=== PATIENT | female | born 1965 | race Caucasian/White ===

== ENCOUNTER → 2017-08-08 | Outpatient (CLI) | payer BC, SELFPAY | PROVIDERS: PCP Family Medicine; Visit Provider Family Medicine | DX: Z87.891 Personal history of nicotine dependence (principal); Z12.2 Encounter for screening for malignant neoplasm of respiratory organs | CPT/HCPCS: 77067; G0202 ==

== ENCOUNTER → 2018-05-07 09:59 | Outpatient (POV) | payer BC, SELFPAY | PROVIDERS: Family Provider Family Medicine; PCP Family Medicine; Visit Provider Specialist | DX: R20.8 Other disturbances of skin sensation (principal) | CPT/HCPCS: 95886; 95908 ==

== ENCOUNTER → 2018-05-07 10:51 | Outpatient (CLI) | payer BC, SELFPAY | PROVIDERS: Visit Provider Nurse Practitioner | DX: G47.30 Sleep apnea, unspecified (principal); R40.0 Somnolence | CPT/HCPCS: 95806 ==

== ENCOUNTER → 2018-08-30 12:46 | Outpatient (CLI) | payer BC, SELFPAY ==
--- NOTE | 2018-08-30 12:50 | MM_ITS ---
MM Dig screening mamm BI w/CAD CAD Screening COMPARISON: Digital mammograms with CAD 08/08/2017 and 07/27/2016 INDICATION: There is a history of breast cancer in patient's maternal aunt. TECHNIQUE: Standard CC and MLO images were obtained. R2 CAD reviewed. FINDINGS: Prominent diffuse fibroglandular densities are seen throughout both breasts and the findings are bilateral and symmetrical. There is no new or suspicious lesion in either breast and there are no suspicious microcalcifications. Again noted is the low lying node left axilla. IMPRESSION: Fibrofatty parenchyma with no suspicious lesion seen BI-RADS Category: 1 Negative RECOMMENDED FOLLOW-UP: 1YR - 1 YEAR FOLLOW-UP (A letter has been sent to the patient regarding results of the study.)
== END ==
PROVIDERS: PCP Family Medicine; Visit Provider Obstetrics & Gynecology Gynecology
DX: Z12.31 Encounter for screening mammogram for malignant neoplasm of breast (principal)
CPT/HCPCS: 77067

== ENCOUNTER → 2019-01-22 07:53 | Outpatient (CLI) | payer BC, SELFPAY ==
--- NOTE | 2019-01-22 07:57 | CA_ITS ---
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 Left atrium is normal size, left ventricle is normal size, there is no concentric left ventricular hypertrophy, visually estimated ejection fraction 55% with no regional wall motion abnormality. 2. The right atrium and right ventricle are normal size and contractility. 3. The aortic valve is minimally thickened and calcified consistent with aortic sclerosis. There is no aortic stenosis. 4. The mitral and tricuspid valvular grossly normal. 5. The pulmonic valve is poorly visualized. 6. No significant pericardial effusion noted. DOPPLER INTERROGATION: Doppler interrogation of the aortic, mitral and tricuspid valvular presence of mild mitral and tricuspid regurgitation, tricuspid regurgitation jet velocity is inadequate for calculation of the right ventricular systolic pressure, diastolic parameters are within normal range. CONCLUSION: 1. Normal left ventricular size, preserved left ventricular systolic function, visually estimated ejection fraction 55% with no regional wall motion abnormality. Diastolic parameters are within normal range. 2. Minimally thickened and calcified aortic valve consistent with aortic sclerosis, there is no aortic stenosis aortic insufficiency. 3. Mild mitral and tricuspid regurgitation 4. No significant pericardial effusion noted.
--- NOTE | 2019-01-22 07:57 | NM_ITS ---
SPECT MYOCARDIAL PERFUSION SCAN, REST AND STRESS: EXERCISE STRESS: [facility] REVIEW QGS EF AND WALL MOTION EVALUATION: QPS - PERFUSION EVALUATION: HISTORY: SOB, Fatigue, Family history PROCEDURE: Rest imaging performed after administration of10.14 millicuries Tc MIBI. Dose administered at8:10 a.m., with imaging thereafter. Stress imaging was then performed [id number] minutes 30 seconds of exercise stress. The patient achieved a heart [id number] with projected heart rate of144 . Resting BP121/76 with stress 140/70. At maximum exercise stress,29.7 millicuries Tc MIBI administered at10:05 a.m. with [id number] minutes thereafter. FINDINGS: Perfusion Evaluation: The single slice spect images as well as the [facility] bull's-eye data summary were reviewed. Wall Motion and Ejection Fraction Evaluation: Gated SPECT review and analysis used to evaluate these features. There is a 66 % left ventricular ejection fraction. There seems to be good wall motion Uniform myocardial activity at both stress and rest IMPRESSION: No scintigraphic evidence of exercise-induced myocardial ischemia with normal ejection fraction and normal wall motion
--- NOTE | 2019-01-22 08:19 | HMH.ITSHM ---
Current Home Medications as stated by this patient Brittany Bocanegra or insurance account representative. []MINIVELLE PATCH
== END ==
PROVIDERS: Visit Provider Urology
DX: R00.2 Palpitations (principal); R06.02 Shortness of breath; R07.9 Chest pain, unspecified; Z86.79 Personal history of other diseases of the circulatory system; Z98.890 Other specified postprocedural states
CPT/HCPCS: 78452; 93017; 93306; A9502

== ENCOUNTER → 2021-02-02 12:55 | Outpatient (CLI) | payer BC, SELFPAY | PROVIDERS: Visit Provider Surgery | DX: Z01.812 Encounter for preprocedural laboratory examination (principal); Z11.52 Encounter for screening for COVID-19; Z12.11 Encounter for screening for malignant neoplasm of colon | CPT/HCPCS: U0003 ==

== ENCOUNTER 2021-02-04 06:34 | Day surgery (SDC) | payer BC, SELFPAY ==
[2021-01-28 11:40] VITALS: BMI 31.0
[2021-02-04 06:58] VITALS: BP 139/70; PULSE 92; RESP 18; TEMP 36.7; O2SAT 97
--- NOTE | 2021-02-04 07:02 | HMH.ANESCL ---
[facility] Anesthesia Checklist - Patient Identification Patient Identification: Arm Band - Structural Data Admitted From: Home Planned Operative Procedure/s: Colonoscopy Consent for Planned Operative Procedure(s) Verified: Yes - NPO Status Verified Time NPO: 00:00 - Additional verifications Anesthesia Reactions: Yes (nausea) - Airway Assessment C-Spine Mobility Assessed: Yes TMJ Mobility Assessed: Yes Dentition: Good Dentition - Neurological Assessment Level of Consciousness: Awake Hx Seizures: No Numbness or tingling in extremities: Yes - Anesthesia Plan Anesthesia Risk discussed: Yes Anesthesia Plan: Verified ASA Class: II Anesthesia Type: MAC [facility] History I have reviewed the patient's past medical history: Yes Medical History: Reports:: Anxiety, Heart Murmur, Palpitations, Supraventricular Tachycardia Denies:: Cancer, Diabetes Mellitus Type 1, Diabetes Mellitus Type 2, Internal Pacemaker, Lung Disease, MRSA, Seizures *Have you ever received a pneumonia vaccine?: No *Have you received a flu vaccine this season?: Yes Anesthesia experience/problems:: None Other Surgeries: Yes: No Previous Surgery, Cardiac Surgery, Colonoscopy, Hysterectomy-Total. No: Pacemaker Amputation: No Fractures: No - *Social History Last grade of school completed: High school graduate Smoking Status: Never smoker Alcohol Intake: never Substance Use Type: denies use *Occupational Status:: employed *Travel in the last 8 weeks: None - Psychiatric History Pschychiatric History:: Reports:: Anxiety Family Hx:: Coronary Artery Disease, Heart Attack, Cancer, Kidney Disease
[2021-02-04 07:30] VITALS: O2SAT 97
[2021-02-04 08:04] VITALS: BP 81/46; PULSE 91; RESP 18; TEMP 36.1; O2SAT 92
--- NOTE | 2021-02-04 08:06 | HMH.SCOPE ---
- Procedure: Date: 02/04/21 Patient Date of :: 1965 Procedure Performed:: Colonoscopy Indications:: History of colon polyps Hemorrhoids with intermittent bleeding Performing Provider:: Raza Olivo MD Referring Provider:: . Sedation:: Monitored anesthesia care Procedure:: After informed consent was obtained the patient was taken to the endoscopy suite. Sedation ensued after the patient was transferred to the left lateral decubitus position. Pulse, blood pressure, and oxygen saturation were monitored throughout the procedure. Digital rectal exam revealed no significant abnormality. The colonoscope was placed in position. The entire colon was evaluated. The colonoscope was carefully removed and the patient was transferred to recovery in stable condition. Please see findings and specimens below for detail. Findings:: Bowel preparation relatively fair Fairly significant tortuosity of the sigmoid colon Moderate colonic spasticity Hemorrhoidal cushions with no thrombosis or active bleeding Specimens:: None Recommendations:: Repeat colonoscopy in 3-5 years secondary to history of significant polyps Complications:: No immediate Estimated blood obtained (mL): 0
[2021-02-04 08:14] VITALS: BP 86/58; PULSE 86; RESP 16; TEMP 36.1; O2SAT 94
[2021-02-04 08:24] VITALS: BP 104/54; PULSE 86; RESP 16; TEMP 36.1; O2SAT 95
[2021-02-04 08:34] VITALS: BP 118/77; PULSE 77; RESP 16; TEMP 36.7; O2SAT 99
== END 2021-02-04 08:35 | disposition home or self-care (01) ==
LOC: OUTP 06:35
PROVIDERS: PCP Family Medicine; Visit Provider Surgery
PROC: 0DJD8ZZ Inspection of Lower Intestinal Tract, Via Natural or Artificial Opening Endoscopic (ICD-10-PCS; CPT 45378; principal; 2021-02-04 07:30)
DX: Z12.11 Encounter for screening for malignant neoplasm of colon (principal); K56.2 Volvulus; K64.0 First degree hemorrhoids; K58.9 Irritable bowel syndrome, unspecified; F41.9 Anxiety disorder, unspecified; R01.1 Cardiac murmur, unspecified; R00.2 Palpitations; I47.1 Supraventricular tachycardia; Z79.890 Hormone replacement therapy; Z82.3 Family history of stroke; Z80.9 Family history of malignant neoplasm, unspecified; Z84.1 Family history of disorders of kidney and ureter
CPT/HCPCS: 45378; J2704

== ENCOUNTER → 2021-06-25 08:56 | Outpatient (CLI) | payer BC, SELFPAY ==
--- NOTE | 2021-06-25 09:01 | US_ITS ---
PROCEDURE: US ABDOMEN LIMITED CLINICAL INDICATION: ABNORMAL LIVER ENZYMES COMPARISON: No exams were available for comparison FINDINGS: PANCREAS: Unremarkable. No obvious mass or abnormal fluid collection. No ductal dilatation LIVER: No focal liver lesions demonstrated. Homogeneous echogenicity. No intrahepatic biliary ductal dilatation evident. There is appropriate direction of blood flow within a non dilated portal vein RIGHT KIDNEY: There is an 8 cm simple cyst along the lower pole of the right kidney GALLBLADDER: No gallstones, gallbladder wall thickening, pericholecystic fluid, or biliary dilatation. IMPRESSION: 8 cm right renal cyst otherwise negative right upper quadrant ultrasound. Dictated by: Arnel Thompson MD 06/25/2021 16:37 Arnel Thompson MD in [place] 06/25/2021 16:37
== END ==
PROVIDERS: PCP Family Medicine; Visit Provider Family Medicine
DX: R74.8 Abnormal levels of other serum enzymes (principal)
CPT/HCPCS: 76705

== ENCOUNTER → 2021-06-28 14:29 | Outpatient (CLI) | payer BC, SELFPAY | PROVIDERS: PCP Family Medicine; Visit Provider Family Medicine | DX: G47.30 Sleep apnea, unspecified (principal); R06.83 Snoring | CPT/HCPCS: G0399 ==

== ENCOUNTER → 2021-07-12 09:58 | Outpatient (CLI) | payer BC, SELFPAY ==
[2021-07-12 11:30] LABS: Thyroid Stimulating Hormone 0.53 uIU/mL (0.465-4.68)
== END ==
PROVIDERS: Visit Provider Nurse Practitioner Family
DX: R53.83 Other fatigue (principal)
CPT/HCPCS: 36415; 84443

== ENCOUNTER → 2021-08-03 16:48 | Outpatient (CLI) | payer BC, SELFPAY | PROVIDERS: PCP Family Medicine; Visit Provider Nurse Practitioner | DX: Z20.822 Contact with and (suspected) exposure to COVID-19 (principal) | CPT/HCPCS: C9803; U0003; U0005 ==

== ENCOUNTER → 2021-09-30 12:48 | Outpatient (CLI) | payer BC, SELFPAY ==
--- NOTE | 2021-09-30 12:48 | MM_ITS ---
PROCEDURE INFORMATION: Exam: MG Bilateral Screening 3D Mammography Exam date and time: 09/30/2021 12:48 PM Age: 55 years old Clinical indication: Encounter for screening mammogram for malignant neoplasm of breast TECHNIQUE: Imaging protocol: Bilateral Screening tomosynthesis and 2D mammography including computer-aided detection (CAD) when performed. COMPARISON: 1. MG SCBI MM Dig screening mamm BI w/CAD 08/30/2018 1:13 PM 2. MG DMSB DIG MAMM-SCREEN KASHIF W/CAD 08/08/2017 11:14 AM FINDINGS: MAMMOGRAPHY: Breast composition: The breast tissue is extremely dense, limiting the sensitivity of mammography. Mass: None. Architectural distortion: None. Calcifications: No suspicious calcifications. Asymmetric density: None. Skin thickening: None. Axillary adenopathy: None. IMPRESSION: No mammographic evidence of malignancy. Annual screening is recommended unless otherwise clinically indicated. ASSESSMENT: BI-RADS Category 1: Negative
== END ==
PROVIDERS: PCP Family Medicine; Visit Provider Obstetrics & Gynecology
DX: Z12.31 Encounter for screening mammogram for malignant neoplasm of breast (principal)
CPT/HCPCS: 77063; 77067

== ENCOUNTER → 2021-12-04 10:39 | Outpatient (CLI) | payer BC, SELFPAY ==
--- NOTE | 2021-12-04 10:48 | XR_ITS ---
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 Views: 3 or more views. COMPARISON: No relevant prior studies available. FINDINGS: Bones/joints: Mild osteoarthritic changes. No evidence of an acute fracture or dislocation. Soft tissues: Grossly unremarkable. IMPRESSION: No acute process.
== END ==
PROVIDERS: PCP Physician Assistant; Referring Provider Physician Assistant; Visit Provider Physician Assistant
DX: S69.92XA Unspecified injury of left wrist, hand and finger(s), initial encounter (principal)
CPT/HCPCS: 73130

== ENCOUNTER → 2022-01-19 11:45 | Outpatient (CLI) | payer BC, SELFPAY | PROVIDERS: PCP Family Medicine; Visit Provider Urology | DX: Z01.812 Encounter for preprocedural laboratory examination (principal); Z20.822 Contact with and (suspected) exposure to COVID-19; R31.9 Hematuria, unspecified | CPT/HCPCS: C9803; U0003; U0005 ==

== ENCOUNTER 2022-01-21 08:00 | Day surgery (SDC) | payer BC, SELFPAY ==
[2022-01-21 08:11] VITALS: BP 182/111; PULSE 91; RESP 18; TEMP 36.4; O2SAT 96; BMI 32.5
[2022-01-21 09:32] VITALS: BP 170/88; PULSE 78; RESP 18; TEMP 36.1; O2SAT 96
--- NOTE | 2022-01-21 10:35 | P.OP_ITS ---
Date of procedure: 01/21/22 Pre-op Diagnosis:: Gross hematuria Post-op Diagnosis:: Gross hematuria Procedure performed:: Cystoscopy Surgeon:: Ilya Boykin MD Anesthesia: local Estimated blood loss (mL): 0 Clinical Note:: 56-year-old white female with recurring episodes of the gross hematuria presents for cystoscopic evaluation. CT scan is shown only a 8 cm simple cyst. He states he noticed some dark blood in the toilet bowl this morning. Operative findings:: The bladder was within normal limits. The bladder neck appeared to have some erythematous inflammatory polyps present which appeared a bit papillary in nature. Operative note:: Patient taken to the cystoscopy suite after informed consent was obtained. On the stretcher she was placed into the frog-leg position. She was prepped and draped in a standard surgical fashion and 2% lidocaine placed into the urethra. After few minutes the flexible cystoscope introduced into the urethral meatus. The scope passed into the bladder without difficulty and the bladder examined in a systematic fashion. There was no evidence of papillary tumors, mucosal abnor malities, stones, diverticula or trabeculation. The ureteral orifices in their normal anatomic position with clear efflux of urine. At the bladder neck there appeared to be some polypoid fronds which appeared erythematous. The scope was placed back into the bladder and the scope retroflexed. These bladder neck problems. Papillary in 1 area. The scope then used to examine the rest of the urethra which was within normal limits. Scope removed patient tolerated procedure well. We discussed the bladder neck polyps and cystoscopy with resection of the polyps was felt to be diagnostic as well as therapeutic to rule out any transitional cell carcinoma. We will set this up under general anesthetic in the near future. Condition: stable Disposition: same day Specimens:: None Complications:: None
== END 2022-01-21 09:50 | disposition home or self-care (01) ==
LOC: OUTP 08:02
PROVIDERS: PCP Family Medicine; Visit Provider Urology
PROC: (CPT 52000; principal; 2022-01-21 09:00)
DX: R31.0 Gross hematuria (principal); D41.4 Neoplasm of uncertain behavior of bladder
CPT/HCPCS: 52000

== ENCOUNTER → 2022-02-05 08:31 | Outpatient (CLI) | payer BC, SELFPAY | PROVIDERS: PCP Family Medicine; Visit Provider Urology | DX: Z01.812 Encounter for preprocedural laboratory examination (principal); Z20.822 Contact with and (suspected) exposure to COVID-19; R31.0 Gross hematuria | CPT/HCPCS: C9803; U0003; U0005 ==

== ENCOUNTER 2022-02-07 09:33 | Day surgery (SDC) | payer BC, OTHER, SELFPAY ==
[2022-02-02 11:09] VITALS: BMI 32.0
[2022-02-07] VITALS (11 sets, daily range): BP systolic 119–153; BP diastolic 62–98; PULSE 68–89; RESP 12–20; TEMP 36.2–43; O2SAT 93–98
--- NOTE | 2022-02-07 14:38 | P.PN_ITS ---
[facility] Anesthesia Checklist - Patient Identification Patient Identification: Arm Band - Structural Data Admitted From: Home Planned Operative Procedure/s: Cystoscopy with resection of bladder neck polyps Consent for Planned Operative Procedure(s) Verified: Yes Verified Documents: Surgical Consent, History and Physical - NPO Status Verified Time NPO: 00:00 - Additional verifications Anesthesia Reactions: Yes (nausea) Hx Blood Transfusions: No Blood Transfusion Reaction: No - Airway Assessment C-Spine Mobility Assessed: Yes (mp2) TMJ Mobility Assessed: Yes Dentition: Good Dentition - Neurological Assessment Level of Consciousness: Awake, Alert - Anesthesia Plan Anesthesia Risk discussed: Yes Anesthesia Plan: Verified ASA Class: II Anesthesia Type: General [facility] History I have reviewed the patient's past medical history: Yes Medical History: Reports:: Anxiety, Cancer (bladder), Heart Murmur, Nephritis, Palpitations, Supraventricular Tachycardia Denies:: Diabetes Mellitus Type 1, Diabetes Mellitus Type 2, Internal Pacemaker, Lung Disease, MRSA, Seizures *Have you ever received a pneumonia vaccine?: No *Have you received a flu vaccine this season?: No Other Medical History: Denies: Blood Transfusion Reaction Anesthesia experience/problems:: nac Other Surgeries: Yes: Cardiac Surgery, Colonoscopy, Hysterectomy-Total. No: Pacemaker Amputation: No Fractures: No - *Social History Last grade of school completed: High school graduate Smoking Status: Never smoker Alcohol Intake: never Substance Use Type: denies use *Occupational Status:: employed Housing: house Household Members: spouse *Travel in the last 8 weeks: None - Psychiatric History Pschychiatric History:: Reports:: Anxiety Family Hx:: Coronary Artery Disease, Heart Attack, Cancer, Kidney Disease, Anemia, Stroke
--- NOTE | 2022-02-07 14:38 | HMH.ANESI ---
[facility] Anesthesia Record Part I Intake, IV Amount: 900 Estimated blood loss (mL): 0 Urine output (mL): 0 Blood Pressure: 136/98 SaO2: 93 Pulse Rate: 87 Respiratory Rate: 16 Temperature: 98.3 F Patient is:: Drowsy, Stable Stable to PACU at:: 14:35
--- NOTE | 2022-02-07 15:29 | SUR.PHASEI ---
1503 called and provided detailed report to Yovanny Russell RN 1505 transported via stretcher to post op. vital signs stable. denies pain. upon arrival to post op, detailed report given to Martha Shankar RN. left pt in stable condition with Martha Shankar RN at bedside.
--- NOTE | 2022-02-07 15:51 | HMH.ANESII ---
[facility] Anesthesia Record Part II Discharge Time: 15:05 Destination: Surgical Day Care (OP Surgery) PACU nurse assessment reviewed?: Yes Patient Condition:: Good Anesthesia Complications:: None Swallowing reflex intact?: Yes Cyanosis?: No Blood Pressure: 126/84 Pulse Rate: 68 Temperature: 97.5 F Mental Status: Alert & Oriented Pain level:: 0 Nausea and/or vomitting:: None Intake, IV Amount: 0
--- NOTE | 2022-02-07 16:29 | HMH.OPNOTE ---
Date of procedure: 02/07/22 Pre-op Diagnosis:: Gross hematuria secondary to some bladder neck lesions Post-op Diagnosis:: Same Procedure performed:: Cystoscopy with biopsy of the bladder neck lesion and fulguration of bladder neck Surgeon:: Ilya Boykni MD SPECIAL[employer] FINISHING UTILITY PERSON:: Jerald Nuñez Anesthesia: LMA Estimated blood loss (mL): 2 Clinical Note:: 56-year-old white female with recent gross hematuria noted to have some inflammation and frondular elements at the bladder neck with some papillary change. She presents for urologic management today. She denies any interval gross hematuria. Operative findings:: Bladder neck lesions as described above. Bladder otherwise normal. Operative note:: Patient taken to the operating room after informed consent was obtained. Placed on the operating table in the supine position and general anesthesia administered. Preoperative antibiotics and sequential compression devices placed. She was then placed into the dorsal lithotomy position and prepped and draped in the standard surgical fashion. The 20 Cayetano passed into the urethra and into the bladder. The bladder was examined in a systematic fashion. There is no evidence of mucosal abnormalities, stones, trabeculation or diverticula. The ureteral orifices in the normotonic position. At the bladder neck there were some urethral polyps and some erythematous areas circumferentially. The rigid graspers were placed onto the cystoscope and 2 biopsies were taken from the urethra and 1 at the 12 o'clock position and the other at the 6 o'clock position. Some bleeding was noted from these areas and the urethra was fulgurated in a circumferential fashion. Hemostasis was achieved and a 16 Bengali Watson catheter passed into the bladder and 10 cc placed into the balloon. Patient tolerated procedure well no complications. We will plan on seeing her back in 3 days for catheter removal. Discussion of biopsies at that time as well. Condition: stable Disposition: PACU Specimens:: Bladder neck biopsies Complications:: None
== END 2022-02-07 15:40 | disposition home or self-care (01) ==
LOC: OR 09:35
PROVIDERS: PCP Family Medicine; Visit Provider Urology
PROC: 0TJB8ZZ Inspection of Bladder, Via Natural or Artificial Opening Endoscopic (ICD-10-PCS; CPT 52000; principal; 2022-02-07 11:00)
DX: R31.0 Gross hematuria (principal); N32.9 Bladder disorder, unspecified; Z85.51 Personal history of malignant neoplasm of bladder; N05.9 Unspecified nephritic syndrome with unspecified morphologic changes; F41.1 Generalized anxiety disorder; R01.1 Cardiac murmur, unspecified; Z79.899 Other long term (current) drug therapy
CPT/HCPCS: 52214; 96374; J2405

== ENCOUNTER → 2022-03-22 16:56 | Outpatient (CLI) | payer BC, SELFPAY | PROVIDERS: Visit Provider Urology | DX: R31.9 Hematuria, unspecified (principal) | CPT/HCPCS: 87086 ==

== ENCOUNTER → 2022-05-02 07:59 | Outpatient (CLI) | payer BC, SELFPAY ==
--- NOTE | 2022-05-02 08:00 | CA_ITS ---
APPROVED REPORT EXAM: Comprehensive 2D, Doppler, and color-flow Echocardiogram Saloonkeeper: Lizzie Shetty RVT Ht: 5 ft 9 in Wt: 218lbs BSA: 2.14 BP: 118/64 mmHg Indications: soa, palps,cp,hx ablation for svt 2D Dimensions LVOT 2.37 cm (M/F) 1.5-2.5 LA Volume 23.80 mL LA Volume Index 11.12 mL/m2 (M/F) 16-34 M-Mode Dimensions RVDd 3.19 cm (0.9-2.6) LA Diam 3.47 cm (1.9-4.0) LVDd 4.52 cm (3.5-5.7) Ao Diam 3.14 cm (2.0-3.7) LVDs 2.74 cm (3.5-5.7) IVSd 1.29 cm (0.6-1.1) PWd 0.76 cm (0.6-1.1) EF (Teich) 70.00% FS 39.40% EDV (Teich) 93.40 mL TAPSE 2.74 (<1.7) ESV (Teich) 28.00 mL LV Diastology E Decel Time 173.00 (160-240 msec) E/A Ratio 1.0 MED E' 4.60 (< 7 cm/sec) E'/MED E' Ratio 11.52 (>14) LAT E' 6.80 (<10 cm/sec) E/LAT E' Ratio 7.79 (>14) Aortic Valve AO Peak GR. 3.20 mmHg Mitral Valve MV E Max Paul. 53.00 (40-130 cm/s) MV A Velocity 55.00 (40-130 cm/s) E/A Ratio 0.97 MV Decel. Time 173.00 (160-240 ms) MV PHT 51.00 ms Pulmonary Valve PV Peak Velocity 55.00 (50-150 cm/s) Tricuspid Valve TR P. Velocity 157.00 cm/s RAP Estimate 10.00 mmHg RVSP 19.90 mmHg Left Ventricle Atrium is mildly enlarged, left ventricle is normal size, estimated ejection fraction 55% with no regional wall motion abnormality, diastolic parameters are inconclusive in the study. Right Ventricle Right atrium and right ventricle are mildly enlarged with normal contractility. Aortic Valve Aortic valve is grossly normal, there is no aortic stenosis or aortic insufficiency. Mitral Valve Mitral valve grossly normal, there is trace mitral regurgitation. Tricuspid Valve Tricuspid valve grossly normal, there is trace tricuspid regurgitation, tricuspid regurgitation jet velocity is inadequate for calculation of the right ventricular systolic pressure. Pulmonic Valve Pulmonic valve is poorly visualized. Great Vessels Aortic root is normal size. Inferior vena cava is poorly visualized. Pericardium No significant pericardial effusion noted. Conclusion 1. Mild biatrial enlargement, normal left ventricular size, estimated ejection fraction 55% with no regional wall motion abnormality, diastolic parameters are inconclusive. 2. Mildly enlarged right ventricle with normal contractility. 3. Trace mitral and tricuspid regurgitation. 4. No significant pericardial effusion noted. 5. Inferior vena cava is poorly visualized. Electronically signed by : Delvis Blakely MD 05/02/2022 15:33:40
== END ==
PROVIDERS: PCP Family Medicine; Visit Provider Nurse Practitioner Family
DX: R06.02 Shortness of breath (principal); I35.8 Other nonrheumatic aortic valve disorders
CPT/HCPCS: 93306

== ENCOUNTER → 2022-05-10 13:12 | Outpatient (POV) | payer BC, SELFPAY | PROVIDERS: Visit Provider Dermatology | DX: Z00.00 Encounter for general adult medical examination without abnormal findings (principal) ==

== ENCOUNTER 2022-06-02 08:00 | Emergency (ER) | payer BC, SELFPAY ==
[2022-06-02 08:10] VITALS: BP 153/112; PULSE 102; RESP 20; TEMP 37.2; O2SAT 98; BMI 32.5
--- NOTE | 2022-06-02 08:25 | EXP.UTC ---
Discharge Plan Disposition Patient Disposition: Home, Self-Care Condition: Good Prescriptions Prescriptions: New benzonatate [benzonatate] 100 mg capsule 100 mg PO TIDP PRN (Reason: Cough) Qty: 30 0RF ondansetron 4 mg Tablet,Disintegrating 4 mg PO Q8H PRN (Reason: Nausea) Qty: 20 0RF No Action escitalopram oxalate 10 mg tablet 20 mg PO DAILY metformin 500 mg tablet extended release 24 hr 500 mg PO DAILY aripiprazole 2 MG tablet 2 mg PO DAILY estradiol [Minivelle] 0.1 mg/24 hr patch semiweekly 1 patch transdermal DIRECTED Rx Instructions: 1 patch transdermally twice weekly; pt. can not use the generic of this medication it doesn't work for her she has already tried the generic. Referrals Follow up/Referrals: Dario Kline MD [Primary Care Provider] - See instructions Activity Restrictions/Add. Instructions Additional Instructions/Restrictions: Drink plenty of fluids. Take tylenol or ibuprofen for pain or fever. Take the medications as directed. Follow up with your regular doctor. GO TO THE ER FOR ANY WORSENING SYMPTOMS Quarantine until you know the results of your covid-19 test. Notify your school or workplace of your results and follow their instructions regarding return to work/school. Clinical Impressions Clinical Impression: Viral syndrome, Close exposure to COVID-19 virus Instructions Patient Instructions: Coronavirus Disease 2019, Preventing the Spread of Coronavirus Discharge Instructions Discharge ED Provider: Jeff Alanis [facility] HPI General Stated complaint: covid exposure, cough,drainage,headache Mode of Arrival: Ambulatory Source of Information: Patient Limitations: No Limitations Time Seen by Provider: 06/02/22 08:26 Description of Symptoms (Recalled from Triage Doc. by RN): PATIENT C/O COUGH, RUNNY NOSE, FEVER, AND BODY ACHES THAT STARTED MONDAY. RECENTLY EXPOSED TO COVID HEENT Symptoms (Recalled from RN notes): Yes Resp Symptoms (Recalled from RN notes): Yes Skin Symptoms (Recalled from RN notes): No MS Symptoms (Recalled from RN notes): No Functional Status (Recalled from RN notes): WNL History of Present Illness Provider Complaint: She states that she has felt bad since yesterday. She has body aches, low grade fever, chills, body aches and malaise. Her tested positive for covid-19 2 days ago. Related Data Home Medications Medication Instructions Recorded Confirmed escitalopram oxalate 10 mg tablet 20 mg PO DAILY Depression 03/25/20 06/02/22 aripiprazole 2 mg tablet 2 mg PO DAILY Depression 02/07/22 06/02/22 metformin 500 mg tablet,extended 500 mg PO DAILY . 04/26/22 06/02/22 release 24 hr estradiol 0.1 mg/24 hr semiweekly 1 patch transdermal DIRECTED . 06/02/22 06/02/22 transdermal patch (Minivelle) Previous Rx's Medication Instructions Recorded benzonatate 100 mg capsule 100 mg PO TIDP PRN Cough #30 caps 06/02/22 ondansetron 4 mg disintegrating 4 mg PO Q8H PRN Nausea #20 tabs 06/02/22 tablet Allergies Allergy/AdvReac Type Severity Reaction Status Date / Time No Known Allergies Allergy Verified 04/26/22 11:49 Worker's Comp Is this a Worker's Comp case?: No PFSH PFSH Medical History Anxiety Chest pain H/O supraventricular tachycardia Liver disease Palpitations SOB (shortness of breath) Surgical History History of hysterectomy Status post ablation operation for arrhythmia Social History Smoking Status: Never smoker alcohol intake: never substance use type: denies use current occupational status: employed Travel in the last 8 weeks: None household members: spouse housing: house 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
[2022-06-02 08:42] VITALS: BP 150/96; PULSE 102; RESP 20; TEMP 37.2; O2SAT 98
== END 2022-06-02 09:03 | disposition home or self-care (01) ==
PROVIDERS: Emergency Provider Nurse Practitioner Family; PCP Family Medicine
DX: U07.1 COVID-19 (principal)
CPT/HCPCS: 99212; C9803; G0463; U0003; U0005

== ENCOUNTER 2022-06-29 18:25 | Emergency (ER) | payer BC, SELFPAY ==
--- NOTE | 2022-06-29 19:47 | EXP.UTC ---
Discharge Plan Disposition Patient Disposition: Home, Self-Care Condition: Good Prescriptions Prescriptions: No Action escitalopram oxalate 10 mg tablet 20 mg PO DAILY metformin 500 mg tablet extended release 24 hr 500 mg PO DAILY estradiol [Minivelle] 0.1 mg/24 hr patch semiweekly 1 patch transdermal .Twice a week 90 Days Qty: 24 3RF Rx Instructions: BRAND NAME ONLY. pt. can not use the generic of this medication it doesn't work for her she has already tried the generic. DAW1 aripiprazole 2 MG tablet 2 mg PO DAILY benzonatate [benzonatate] 100 mg capsule 100 mg PO TIDP PRN (Reason: Cough) Qty: 30 0RF ondansetron 4 mg Tablet,Disintegrating 4 mg PO Q8H PRN (Reason: Nausea) Qty: 20 0RF Referrals Follow up/Referrals: Dario Kline MD [Primary Care Provider] - See instructions Activity Restrictions/Add. Instructions Additional Instructions/Restrictions: Drink plenty of fluids. Take tylenol for pain or fever. Follow up with your regular doctor. GO TO THE ER FOR ANY WORSENING SYMPTOMS Clinical Impressions Clinical Impression: Viral disease exposure Instructions Patient Instructions: DI for Viral Syndrome Discharge ED Provider: Jeff Alanis [facility] [place] General Stated complaint: RSV Time Seen by Provider: 06/29/22 19:47 History of Present Illness Provider Complaint: She is here to be tested for rsv. she denies symptoms. She has a new grand baby that she is going to see and she does want to pack rsv in on it. Related Data Home Medications Medication Instructions Recorded Confirmed escitalopram oxalate 10 mg tablet 20 mg PO DAILY Depression 03/25/20 06/02/22 aripiprazole 2 mg tablet 2 mg PO DAILY Depression 02/07/22 06/02/22 metformin 500 mg tablet,extended 500 mg PO DAILY . 04/26/22 06/02/22 release 24 hr Previous Rx's Medication Instructions Recorded benzonatate 100 mg capsule 100 mg PO TIDP PRN Cough #30 caps 06/02/22 ondansetron 4 mg disintegrating 4 mg PO Q8H PRN Nausea #20 tabs 06/02/22 tablet Minivelle 0.1 mg/24 hr transdermal 1 patch transdermal .Twice a week 06/03/22 patch (estradiol) . 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 documented Constitutional Constitutional: Denies chills and Denies fever(s) Eyes Eyes: Denies eye discharge ENT Ears, Nose, Mouth, and Throat: Denies dizziness, Denies otalgia and Denies sore throat Cardiovascular Cardiovascular: Denies chest pain Respiratory Respiratory: Denies shortness of breath, Denies chest congestion, Denies cough, Denies stridor and Denies wheezing Gastrointestinal Gastrointestingal: Denies nausea or vomiting Musculoskeletal Musculoskeletal: Reports system reviewed and no additional complaints, except as documented and Denies arthralgias Integumentary/Breasts Skin/Breast: Denies rash Neurologic Neurologic: Denies dizziness and Denies paresthesias Allergic/Immunologic Allergic/Immunologic: Denies wheezing Physical Exam General General appearance: alert and in no apparent distress Head Head exam: atraumatic, normocephalic and normal inspection
[2022-06-29 19:52] VITALS: BP 149/81; PULSE 103; RESP 18; TEMP 36.7; O2SAT 98; BMI 32.5
[2022-06-29 19:52] LABS: Adenovirus,PCR Not Detected (NotDetected); Bordetella Pertussis Not Detected (NotDetected); Chlamydophila Pneumoniae, PCR Not Detected (NotDetected); Coronavirus 19, PCR Not Detected (NotDetected); Coronavirus 229E Not Detected (NotDetected); Coronavirus NL63 Not Detected (NotDetected); Coronavirus OC43 Not Detected (NotDetected); Coronovirus HKU1,PCR Not Detected (NotDetected); Human Metapneumovirus Not Detected (NotDetected); Influenza A, PCR Not Detected (NotDetected); Influenza AH1, 2009 Not Detected (NotDetected); Influenza AH1, PCR Not Detected (NotDetected); Influenza AH3,PCR Not Detected (NotDetected); Influenza B, PCR Not Detected (NotDetected); Mycoplasma Pneumoniae, PCR Not Detected (NotDetected); Parainfluenza 1, PCR Not Detected (NotDetected); Parainfluenza 2, PCR Not Detected (NotDetected); Parainfluenza 3, PCR Not Detected (NotDetected); Parainfluenza 4, PCR Not Detected (NotDetected); Respiratory Syncytial Virus Not Detected (NotDetected); Rhinovirus/Enterovirus Not Detected (NotDetected)
[2022-06-29 19:58] VITALS: BP 149/81; PULSE 103; RESP 18; TEMP 36.7
== END 2022-06-29 20:00 | disposition home or self-care (01) ==
PROVIDERS: Emergency Provider Nurse Practitioner Family; PCP Family Medicine
DX: Z20.828 Contact with and (suspected) exposure to other viral communicable diseases (principal)
CPT/HCPCS: 87581; 87632; 87798; 99212; C9803; G0463; U0003; U0005

== ENCOUNTER → 2023-04-19 10:21 | Outpatient (CLI) | payer BC, SELFPAY ==
--- NOTE | 2023-04-19 10:24 | MM_ITS ---
PROCEDURE INFORMATION: Exam: MG Bilateral Screening 3D Mammography Exam date and time: 04/19/2023 10:13 AM Age: 57 years old Clinical indication: Screening mammogram TECHNIQUE: Imaging protocol: Bilateral Screening tomosynthesis and 2D mammography including computer-aided detection (CAD) when performed. COMPARISON: 1. MG MM DIG SCREENING MAMM BI W/CAD 09/30/2021 12:57 PM 2. MG SIMONE SCRN MAMMO W/CAD BILAT 09/02/2019 11:12 AM 3. MG SCBI MM Dig screening mamm BI w/CAD 08/30/2018 1:13 PM 4. MG DMSB DIG MAMM-SCREEN KASHIF W/CAD 08/08/2017 11:14 AM FINDINGS: MAMMOGRAPHY: Breast composition: The breast is heterogeneously dense, which may obscure small masses. Mass: None. Architectural distortion: No new or suspicious architectural distortion. Calcifications: No new or suspicious calcifications are present Asymmetric density: No new or suspicious asymmetric density is present Skin thickening: None. Axillary adenopathy: None. IMPRESSION: No mammographic evidence of malignancy. Recommend annual screening mammography unless otherwise clinically indicated. ASSESSMENT: BI-RADS category 1: Negative
== END ==
PROVIDERS: PCP Family Medicine; Visit Provider Physician Assistant
DX: Z12.31 Encounter for screening mammogram for malignant neoplasm of breast (principal)
CPT/HCPCS: 77063; 77067

== ENCOUNTER 2023-06-14 07:06 | Outpatient (CLI) | payer BC, SELFPAY ==
[2023-06-14] VITALS (7 sets, daily range): BP systolic 109–128; BP diastolic 56–86; PULSE 66–82; RESP 16–18; TEMP 36.2–36.6; O2SAT 95–100; BMI 30.4
--- NOTE | 2023-06-14 07:07 | CT_ITS ---
APPROVED REPORT Launch Leader: CLINICAL INDICATION Chest Pain TECHNIQUE Image Acquisition: A 128 slice MDCT scanner (MaxVisiona View) was used for data acquisition. A noncontrast coronary calcium scan was performed. A CT attenuation threshold of 130 Hounsfield units (HU) was used for the detection of calcium in contiguous voxels of 1 sq mm in area to be counted as individual lesions. Bolus tracking in the ascending aorta with a threshold of 180 HU was performed. Immediately afterwards, ECG synchronized cardiac CT was then performed from the cardiac base to apex using retrospective gating with ECG tube current modulation. A total of 85 mL of Isovue 370 mg/mL contrast medium was administered at 5 mL/sec followed by a saline flush using a biphasic injection protocol. A tube voltage of 120 KVp was used. The patient received the following medications prior to the cardiac CT. 100 mg of oral metoprolol 15 mg of intravenous metoprolol 0.8 mg of sublingual nitroglycerin The average heart rate at the time of acquisition was 61 bpm and regular. Image Reconstruction Transaxial images were reconstructed at 0.67 mm slide thickness. Data was reviewed interactively on an advanced workstation capable of 2 and 3-dimensional displays in all conventional reconstruction formats, including multiplanar reformations, maximum intensity projections, curved multiplanar reformations, and volume rendered reconstructions. When applicable, selected routine images describing the relevant coronary anatomy and pathology were saved and sent to PACS. Complications None Technical Quality Overall image quality was good. Coronary artery opacification was adequate. Total DLP (Dose-Length Product) is 1452.7 mGy-cm. The reported value represents the total of one or more individual components during the CT acquisition of this date and at this time, and as such, the same value may appear in more than one CT report depending on the interpreting/reporting physicians. COMPARISON None FINDINGS CT Coronary Calcium Scoring LMA (Left Main Artery) = 0 LAD (Left Anterior Descending) = 0 LCX (Left Coronary Circumflex) = 0 RCA (Right Coronary Artery) = 0 Total Calcium Score = 0 using the AJ-130 method. The interpretation of the calcium heart score is based on the following continuum*: 0 = no calcified plaque detected (risk of coronary artery disease is very low ??? less than 5%) 1-10 = calcium detected in extremely minimal levels (risk of coronary diseases is still low ??? less than 10%) 11-100 = mild levels of plaque detected with certainty (mild or minimal narrowing of heart arteries is likely) 101-400 = definite,at least moderate levels of plaque detected (relatively high risk of a heart attack within 3-5 years) >401-999 = extensive levels of plaque detected (high risk of heart attack, high levels of vascular disease are present, high likelihood of at least one significant coronary narrowing) *The calcium heart score quantifies the burden of coronary calcification/plaque in the coronary arteries. The calcium heart score is not able to evaluate the presence or burden of non-calcified (i.e. soft) plaque. There is no identifiable calcification in the aortic valve, mitral annulus or mitral valve, pericardium, or myocardium. Coronary CT Angiography Coronaries have normal origin and proximal course. The coronary arterial system is right dominant. Note: Stenosis is reported as maximum percentage diameter stenosis. Quantitative Stenosis Grading: Left Main (LM): The left main originates normally from the left sinus of Valsalva. The LM bifurcates into the left anterior descending artery and left circumflex artery. The LM is patent with no evidence of atherosclerosis.
[2023-06-14 08:31] LABS: Chloride 101 mmol/L (98-107)
[2023-06-14 08:32] LABS: Potassium 4.2 mmoL/L (3.5-5.1); Sodium 137 mmol/L (136-145)
[2023-06-14 08:35] LABS: Anion Gap 11.2 mEq/L (5-15); Blood Urea Nitrogen 19 mg/dl (7-17); Calcium 8.9 mg/dl (8.4-10.2); Carbon Dioxide 29 mmol/L (22.0-30.0); Creatinine Clearance Estimated 134 mL/min (50-200); Estimated Glomerular Filt Rate 87 ml/min (>60); GFR (African American) 105 ML/MIN (>60); Glucose 140 mg/dl (74-100)
--- NOTE | 2023-06-14 10:30 | CA_ITS ---
APPROVED REPORT EXAM: Comprehensive 2D, Doppler, and color-flow Echocardiogram Director [employer]ing: Merlyn Segura, RCS, RVS Ht: 5 ft 9 in Wt: 208lbs BSA: 2.10 BP: 130/81 mmHg Indications: Atypical CP, SOB 2D Dimensions IVSd 1.26 cm LVEF (Visual) 58.30 % PWd 1.34 cm LA Volume 48.90 mL LVDd 3.84 cm LA Volume Index 22.70 mL/m2 (M/F) 16-34 LVDs 2.68 cm Aortic Root 3.25 cm Left Atrium 3.32 cm LVOT 1.92 cm (M/F) 1.5-2.5 M-Mode Dimensions RVDd 3.65 cm (0.9-2.6) LA Diam 3.12 cm (1.9-4.0) LVDd 4.51 cm (3.5-5.7) Ao Diam 3.01 cm (2.0-3.7) LVDs 2.61 cm (3.5-5.7) IVSd 1.11 cm (0.6-1.1) PWd 0.79 cm (0.6-1.1) EF (Teich) 73.30% EPSs 1.11 cm FS 42.10% EDV (Teich) 92.90 mL TAPSE 1.57 (<1.7) ESV (Teich) 24.80 mL LV Diastology E Decel Time 170.00 (160-240 msec) E/A Ratio 0.75 MED E' 4.70 (< 7 cm/sec) MED A' 8.90 cm/s E'/MED E' Ratio 12.02 (>14) LAT E' 5.40 (<10 cm/sec) LAT A' 7.50 cm/s E/LAT E' Ratio 10.46 (>14) Aortic Valve LVOT Max 74.00 (70-110 cm/s) LVOT VTI 15.82 cm AoV Peak Paul. 100.00 (50-130 cm/s) AO Peak GR. 4.00 mmHg AO Mean GR. 2.00 (<5 mmHg) AO VTI 21.23 (18-25 cm) ASHLEY (VTI) 2.16 (2.5-4.5 cm2) Mitral Valve MV A Velocity 75.00 (40-130 cm/s) E/A Ratio 0.75 MV Decel. Time 170.00 (160-240 ms) Pulmonary Valve RI End VMAX 145.00 cm/s Tricuspid Valve TR P. Velocity 233.00 cm/s RAP Estimate 10.00 mmHg RVSP 31.70 mmHg Left Ventricle The left ventricle is normal size. The left ventricular systolic function is normal. The left ventricular ejection fraction is within the normal range. There is normal left ventricular wall thickness. There is normal LV segmental wall motion. The left ventricular diastolic function is normal. LVEF is 55-60%. Right Ventricle The right ventricle is normal size. The right ventricular systolic function is normal. Atria The left atrium size is normal. The right atrium size is normal. There is no Doppler evidence of interatrial shunt. Aortic Valve The aortic valve opens well. There is no aortic valvular stenosis. No aortic regurgitation is present. Mitral Valve The mitral valve is normal in structure. No evidence of mitral valve stenosis. There is no mitral valve regurgitation noted. Tricuspid Valve Tricuspid valve leaflets are thin and pliable. Mild tricuspid regurgitation. RVSP is normal. Pulmonic Valve The pulmonary valve is normal in structure. Mild pulmonic regurgitation. Great Vessels The aortic root is normal in size. The ascending aorta is normal in size. IVC is normal in size and collapses >50% with inspiration. Pericardium There is no pericardial effusion. Other Information Study Quality: Fair Conclusion Normal biventricular systolic function. No significant valvular stenosis or regurgitation. Electronically signed by : Debra Collins MD 06/14/2023 12:40:55
== END 2023-06-14 10:40 | disposition home or self-care (01) ==
LOC: RAD 07:07
PROVIDERS: PCP Family Medicine; Visit Provider Internal Medicine
DX: R06.02 Shortness of breath (principal); R07.9 Chest pain, unspecified; Z86.79 Personal history of other diseases of the circulatory system; Z98.890 Other specified postprocedural states
CPT/HCPCS: 75574; 80048; 93306; Q9967

== ENCOUNTER 2024-07-23 16:20 | Outpatient (CLI) | payer BC, SELFPAY | END 2024-07-23 23:59 | disposition home or self-care (01) | LOC: LAB.DROPOF 16:20 | PROVIDERS: PCP Otolaryngology; Visit Provider Otolaryngology | DX: L72.0 Epidermal cyst (principal) | CPT/HCPCS: 87070; 87205 ==

== ENCOUNTER 2024-07-25 07:43 | Outpatient (CLI) | payer BC, SELFPAY ==
--- NOTE | 2024-07-25 07:44 | XR_ITS ---
FINAL REPORT TECHNIQUE: Bone densitometry calculations of the lumbar spine and left hip were obtained. CLINICAL HISTORY: Screening Dexa/Post Menopausal COMPARISON: None FINDINGS: Using L1-4, the bone mineral density of the spine is 1.149 g/cm2, corresponding to T-score of 0.9. Using the left hip, the bone mineral density of the femoral neck is 0.872 g/cm2, corresponding to a T-score of -0.6. NOTE: T-score: Standard deviation compared with peak bone mass of young adult mean. *Following the recommendations of the International Society of Bone densitometry, classification of hip BMD is based on the lower of two T-scores; total hip or femoral neck. IMPRESSION: Normal bone mineral density of the lumbar spine and hip. Reviewed, Interpreted and Dictated by Christiano Francisco III, MD Transcribed by Veronica Ovalles Authenticated and [facility]
--- NOTE | 2024-07-25 07:44 | MM_ITS ---
PROCEDURE INFORMATION: Exam: MG Bilateral Screening 3D Mammography Exam date and time: 07/25/2024 7:48 AM Age: 58 years old Clinical indication: Screening examination. TECHNIQUE: Imaging protocol: Bilateral Screening tomosynthesis and 2D mammography including computer-aided detection (CAD) when performed. COMPARISON: 1. MG MM DIG SCREENING MAMM BI W/CAD 04/19/2023 10:13 AM 2. MG MM DIG SCREENING MAMM BI W/CAD 09/30/2021 12:57 PM FINDINGS: MAMMOGRAPHY: Breast composition: The breasts are heterogeneously dense, which may obscure small masses. Mass: None. Architectural distortion: None. Calcifications: No suspicious calcifications. Asymmetric density: None. Skin thickening: None. Axillary adenopathy: None. IMPRESSION: No mammographic evidence of malignancy. Annual screening is recommended unless otherwise clinically indicated. ASSESSMENT: BI-RADS Category 1: Negative.
== END 2024-07-25 23:59 | disposition home or self-care (01) ==
LOC: RAD 07:44
PROVIDERS: PCP Physician Assistant; Visit Provider Obstetrics & Gynecology
DX: Z12.31 Encounter for screening mammogram for malignant neoplasm of breast (principal); Z13.820 Encounter for screening for osteoporosis; N95.1 Menopausal and female climacteric states
CPT/HCPCS: 77063; 77067; 77080

== ENCOUNTER 2025-03-18 11:08 | Outpatient (CLI) | payer BC, SELFPAY ==
--- OUTSIDE RECORDS SUMMARY | 2024-10-28 07:15 | XMS_ITS ---
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 Role Phone Dave Kline Primary Care Provider Amy Guzman Unavailable [phone] Allergies Allergen (clinical drug ingredient) Drug/Non Drug Allergy documented on EMR Reaction Allergy Type Onset Date Status metformin metFORMIN diarrhea Drug Allergy Active Results Component Value Reference Range Notes Glucose (In-House) Reviewed date:10/28/2024 01:09:23 PM Interpretation:107 Performing Lab: Notes/Report: 107 blood glucose 107 74 - 106 mg/dL REASON FOR VISIT discuss medication Medications Medication SIG (Take, Route, Frequency, Duration) Notes Start Date End Date Status Shraddha 0.1 MG/24 HOURS TWICE WEEKLY 1 PATCH TRANSDERMALLY 2 TIMES A WEEK; Duration: 30 DAY(S) *Please review and pick correct strength-formulat ion from Mor.sl options. If intended option is not shown, discontinue and re-order from Quick Search* Active Rosuvastatin Calcium 5 MG TAKE 1 TABLET BY MOUTH ONCE DAILY; Duration: 30 Active Mounjaro 7.5 MG/0.5ML 7.5 mg Subcutaneous once a week Active DULoxetine HCl 40 MG 1 capsule Orally Once a day; Duration: 30 day(s) 10/28/2024 Active Vitamin B 12 100 MCG as directed Orally Not-Takin g Vitamin D (Cholecalciferol) 25 MCG (1000 UT) 1 tablet Orally Once a day; Duration: 30 day(s) Active Fish Oil 500 MG 1 capsule Orally Three times a day; Duration: 30 day(s) Not-Taking Problems Problem Type SNOMED Code ICD Code Onset Dates Problem Status W/U Status Risk Notes Problem Type 2 diabetes mellitus (E11.9) Active confirmed Vital Signs Weight 193.0 lbs 10/28/2024 Blood pressure systolic 120 mm Hg 10/29/19 25 Blood pressure diastolic 70 mm Hg 025 Height 70 in 10/28/2024 BMI 27.69 kg/m2 10/28/2024 Encounters Encounter Location Date Provider Diagnosis [facility] [address] [place] [id number] 10/28/2024 Amy Guzman Type 2 diabetes mellitus E11.9 and Depression 311 Assessments Encounter Date Diagnosis (ICD Code) Assessment Notes Treatment Notes Treatment Clinical Notes Section Notes 10/28/2024 Type 2 diabetes mellitus (ICD-10 - E11.9) possible low BS; will stop Farxiga; will start to check FSBS several times weekly and also when she is shaking or feeling bad and to document 10/28/2024 Depression (ICD-10 - 311) will try switching meds for her depression Plan Of Treatment Medication Medication Name Sig Start Date Stop Date Notes Venlafaxine HCl ER 75 MG TAKE 1 CAPSULE BY MOUTH ONCE DAILY WITH FOOD DULoxetine HCl 40 MG 1 capsule Orally On ce a day; Duration: 30 day(s) 10/28/2024 Farxiga 10 MG 1 tab(s) orally once a day Treatment Notes Assessment Notes Type 2 diabetes mellitus possible low BS ; will stop Farxiga; will start to check FSBS several times weekly and also when she is shaking or feeling bad and to document Depression will try switching m eds for her depression Next Appt Details Follow Up: 2 Months, Reason: Progress Notes * OPAL BOCANEGRADOB:1965 (59 yo F)Acc No.[id number]:10/28/2024 Progress Notes Patient: OPAL CERON Provider: ELSY Veliz :1965 A ge:58 Y S ex:Female Date:10/28/2024 Address:[address] [place] [address] [id number] Pcp:Dave Kline Subjective: * Chief Complaints: * 1 . Discuss medication. * HPI: H PI: 58 year old female presents with c/o Patient is here today for?Pt is here today to discuss medication. Pt sts she has been having some side effects and sts she thinks she needs some adjustments to her medications. constantly tired; for 2 months always tired; thinks her anxiety is more; works from home-[employer]. * ROS: D ERMATOLOGY: no R sariah. n o H betito. G ASTROENTEROLOGY: no N ausea. n o V omiting. U ROLOGY: no D ifficulty urinating. n o B lood in urine. * Medical History: P rediabetes. * Surgical History: T issue removed from under right arm 1994, Total Hysterectomy 2015, RT Ear Polyp Removal 2007, Heart Ablation-Dr Scales 2016. * Family History: F ather: 50 yrs, liver cancer. M other: 58 yrs, suicide. 1 brother(s) . 1 son(s) , 1 daughter(s) . . pt had a sister pass away in 08/2018 due to COPD. * Social History: C URRENT TOBACCO USE: No . C affeine: yes, frequency: on occasion. Home smoke detector use: yes. Alcohol: no. * Medications: T aking Vitamin D (Cholecalciferol) 25 MCG (1000 UT) Tablet 1 tablet Orally Once a day , Taking Shraddha 0.1 MG/24 HOURS TWICE WEEKLY FILM, EXTENDED RELEASE 1 PATCH TRANSDERMALLY 2 TIMES A WEEK , Notes to Pharmacist: *Please review and pick correct strength-formulation from Medispan options. If intended option is not shown, discontinue and re-order from Quick Search*, Taking Farxiga 10 MG Tablet 1 tab(s) orally once a day , Taking Venlafaxine HCl ER 75 MG Capsule Extended Release 24 Hour TAKE 1 CAPSULE BY MOUTH ONCE DAILY WITH FOOD , Taking Mounjaro 7.5 MG/0.5ML Solution Auto-injector 7.5 mg Subcutaneous once a week , Taking Rosuvastatin Calcium 5 MG Tablet TAKE 1 TABLET BY MOUTH ONCE DAILY , Not-Taking Fish Oil 500 MG Capsule 1 capsule Orally Three times a day , Not-Taking Vitamin B 12 100 MCG Lozenge as directed Orally , Medication List reviewed and reconciled with the patient * Allergies: m etFORMIN: diarrhea - Side Effects. Objective: * Vitals: W t:193.0, Temp:98.6, BP:120/70, Nurse:jai, Ht: 70, BMI:27.69. * Examination: G eneral Examination: General Appearance: NAD, appears healthy, alert, pleasant. H eart: RRR. L ungs: CTAB A&P. N eurologic Exam: alert and oriented; no tremors. E xtremities: no leg edema. P sychology: Grooming : good. E ye contact : normal. M ood : euphoric. N eurologic Exam: Intact. Assessment: * Assessment: 1. T ype 2 diabetes mellitus - E11.9 (Primary) 2 . D epression - 311 ? Plan: * Treatment: Value Reference Range b lood glucose 107 74 - 106 mg/dL * Kendra Carter 10/28/2024 11:52 :37 AM > Provider reviewed results while patient in office.Amy Guzman 10/28/2024 1:09:25 PM > Notes: possible low BS; will stop Farxiga; will start to check FSBS several times weekly and also when she is shaking or feeling bad and to document?? 2.?Depression? Start DULoxetine HCl Capsule Delayed Release Particles, 40 MG, 1 capsule, Orally, Once a day, 30 day(s), 30, Refills 2;?Stop Venlafaxine HCl ER Capsule Extended Release 24 Hour, 75 MG, TAKE 1 CAPSULE BY MOUTH ONCE DAILY WITH FOOD.?? Notes: will try switching meds for her depression?? * Procedure Codes: 3 6416 CAPILLARY BLOOD DRAW, 41180 GLUCOSE TEST, 3074F SYST BP LT 130 MM HG, 3078F DIAST BP < 80 MM HG, 3044F HG A1C LEVEL LT 7.0% * Follow Up: 2 Months * Images: Billing Information: * Visit Code: 16205 Office Visit, Est Pt., Level 4. * Procedure Codes: 87009 CAPILLARY BLOOD DRAW. 95316 GLUCOSE TEST. 3074F SYST BP LT 130 MM HG. 3078F DIAST BP < 80 MM HG. 3044F HG A1C LEVEL LT 7.0%. * Electronic signature of Cynthia Guzman APRN on 03/18/2025 at 11:14 AM EDT Sign off status: Pending * Provider: ELSY Veliz Date: 0 10/28/2024 Generated for Hamzah landry/Diana/Danayransmitting on: 0 03/18/2025 11:14 AM EDT History and Physical Notes * HPI (History of Present Illness) Category Sub-Category Detail Notes Category Not es HPI Patient is here toda y for Pt is here today to discuss medication. Pt sts she has been having some side effects and sts she thinks she needs some adjustments to her medications constantly tired; for 2 months always tired; thinks her anxiety is more; works from [employer] Examination Category Sub-Category Detail Notes Category Not es General Examination Heart: RRR Lungs: CTAB A&P Extremities: no leg edema General Appearance: NAD, appears healthy , alert, pleasant Neurologic Exam: alert and oriented; no tremors Psychology Neurologic Exam: Intact Grooming : good Eye contact : normal Mood : euphoric
--- OUTSIDE RECORDS SUMMARY | 2024-11-11 06:45 | XMS_ITS ---
[facility] Organization [facility] Address [address] [facility] [address] [place] [id number] Care Team Providers Care Artist Relationship Manager Name Role Phone Dave Kline Primary Care Provider [phone] Amy Guzman Unavailable [phone] Allergies Allergen (clinical drug ingredient) Drug/Non Drug Allergy documented on EMR Reaction Allergy Type Onset Date Status metformin metFORMIN diarrhea Drug Allergy Active Results Component Value Reference Range Notes Glucose (In-House) Reviewed date:11/12/2024 02:44:11 PM Interpretation:114 Performing Lab: Notes/Report: 114 blood glucose 114 74 - 106 mg/dL REASON FOR VISIT Follow Up Medications Medication SIG (Take, Route, Frequency, Duration) Notes Start Date End Date Status DULoxetine HCl 40 MG 1 capsule Orally Once a day 10/28/2024 Active Mounjaro 7.5 MG/0.5ML 7.5 mg Subcutaneous once a week Active Fish Oil 500 MG 1 capsule Orally Three times a day; Duration: 30 day(s) Not-Taking Rosuvastatin Calcium 5 MG TAKE 1 TABLET BY MOUTH ONCE DAILY; Duration: 30 Active Vitamin B 12 100 MCG as directed Orally Not-Takin g Vitamin D (Cholecalciferol) 25 MCG (1000 UT) 1 tablet Orally Once a day; Duration: 30 day(s) Active Shraddha 0.1 MG/24 HOURS TWICE WEEKLY 1 PATCH TRANSDERMALLY 2 TIMES A WEEK; Duration: 30 DAY(S) *Please review and pick correct strength-formulat ion from [employer] options. If intended option is not shown, discontinue and re-order from Quick Search* Active Problems Problem Type SNOMED Code ICD Code Onset Dates Problem Status W/U Status Risk Notes Problem Hypoglycemia (E16.2) Active confirmed Vital Signs Blood pressure systolic 122 mm Hg 11/12/19 25 Blood pressure diastolic 60 mm Hg 025 Height 70 in 11/11/2024 Weight 195.8 lbs 11/11/2024 BMI 28.09 kg/m2 11/11/2024 Encounters Encounter Location Date Provider Diagnosis [facility] [address] [place] [id number] 11/11/2024 Amy Guzman Hypoglycemia E16.2 ; Depression 311 and Type 2 diabetes mellitus without complication, without long-term current use of insulin E11.9 Assessments Encounter Date Diagnosis (ICD Code) Assessment Notes Treatment Notes Treatment Clinical Notes Section Notes 11/11/2024 Hypoglycemia (ICD-10 - E16.2) 11/11/2024 Depression (ICD-10 - 311) doing well with this med 11/11/2024 Type 2 diabetes mellitus without complication, without long-term current use of insulin (ICD-10 - E11.9) doing well without SGLT2; will continue to monitor BS; repeat A1C at next visit; doing well with Mounjaro; will continue with same dosage Plan Of Treatment Medication Medication Name Sig Start Date Stop Date Notes DULoxetine HCl 40 MG 1 capsule Orally Once a day Mounjaro 7.5 MG/0.5ML 7.5 mg Subcutaneous once a week Treatment Notes Assessment Notes Depression doing well with this med Type 2 diabetes mellitus wit hout complication, without long-term current use of insulin doing well without SGLT2; will continue to monitor BS; repeat A1C at next visit; doing well with Mounjaro; will continue with same dosage Next Appt Details Follow Up: 4 Months,and prn, Reason: Progress Notes * OPAL BOCANEGRADOB:1965 (59 yo F)Acc No.[id number]:11/11/2024 Progress Notes Patient: OPAL CERON Provider: ELSY Veliz :1965 A ge:58 Y S ex:Female Date:11/11/2024 Address:[address] [place] [address] [place], [place] Pcp:Dave Kline Subjective: * Chief Complaints: * 1 . Follow Up. * HPI: H PI: 58 year old female presents with c/o Patient is here today for?Pt is here today for a f/u on her medications. has been doing better with less fogginess; has jittery spells; low BS 60's; some BS [id number] after eating. * ROS: D ERMATOLOGY: no R sariah. [...] discontinue and re-order from Quick Search*, Taking Mounjaro 7.5 MG/0.5ML Solution Auto-injector 7.5 mg Subcutaneous once a week , Taking Rosuvastatin Calcium 5 MG Tablet TAKE 1 TABLET BY MOUTH ONCE DAILY , Taking DULoxetine HCl 40 MG Capsule Delayed Release Particles 1 capsule Orally Once a day , Not-Taking Fish Oil 500 MG Capsule 1 capsule Orally Three times a day , Not-Taking Vitamin B 12 100 MCG Lozenge as directed Orally , Medication List reviewed and reconciled with the patient * Allergies: m etFORMIN: diarrhea - Side Effects. Objective: * Vitals: W t: 195.8, Temp: 97.7, BP: 122/60, Nurse: jai, Ht: 70, BMI:28.09. * Examination: G eneral Examination: General Appearance: NAD, appears healthy, alert. H eart: RRR. L ungs: CTAB A&P. N eurologic Exam: alert and oriented. ? P sychology: Grooming : good. M ood : pleasant, good. ? Assessment: * Assessment: 1. H ypoglycemia - E16.2 (Primary) 2 . D epression - 311 3 . T ype 2 diabetes mellitus without complication, without long-term current use of insulin - E11.9 Plan: * Treatment: Value Reference Range b lood glucose 114 74 - 106 mg/dL * Kendra Carter 11/11/2024 11:3 1:26 AM > Provider reviewed results while patient in office.Amy Guzman 11/12/2024 2:44:08 PM > 2.?Depression? Continue DULoxetine HCl Capsule Delayed Release Particles, 40 MG, 1 capsule, Orally, Once a day. ? Notes: doing well with this med??3.?Type 2 diabetes mellitus without complication, without long-term current use of insulin? Continue Mounjaro Solution Auto-injector, 7.5 MG/0.5ML, 7.5 mg, Subcutaneous, once a week.? Notes: doing well without SGLT2; will continue to monitor BS; repeat A1C at next visit; doing well with Mounjaro; will continue with same dosage?? * Procedure Codes: 3 6416 CAPILLARY BLOOD DRAW, 99718 GLUCOSE TEST, 3044F HG A1C LEVEL LT 7.0%, 3074F SYST BP LT 130 MM HG, 3078F DIAST BP < 80 MM HG * Follow Up: 4 Months,and prn * Images: Billing Information: * Visit Code: 21075 Office Visit, Est Pt., Level 3. * Procedure Codes: 66116 CAPILLARY BLOOD DRAW. 63605 GLUCOSE TEST. 3044F HG A1C LEVEL LT 7.0%. 3074F SYST BP LT 130 MM HG. 3078F DIAST BP < 80 MM HG. * Electronic signature of Cynthia Guzman APRN on 03/18/2025 at 11:14 AM EDT Sign off status: Pending * Provider: ELSY Veliz Date: 0 11/11/2024 Generated for Hamzah landry/Diana/Chantelsmitting on: 0 03/18/2025 11:14 AM EDT History and Physical Notes * HPI (History of Present Illness) Category Sub-Category Detail Notes Category Not es HPI Patient is here toda y for Pt is here today for a f/u on her medications has been doing better with less fogginess; has jittery spells; low BS 60's; some BS [id number] after eating Examination Category Sub-Category Detail Notes Category Not es General Examination Heart: RRR Lungs: CTAB A&P General Appearance: NAD, appears healthy , alert Neurologic Exam: alert and oriented Psychology Grooming : good Mood : pleasant, good
--- OUTSIDE RECORDS SUMMARY | 2025-03-18 11:14 | XMS_ITS | Encounter Summary ---
Author Organization Healthcare Address [address] [place] [address] Care Team Providers Care Delinquency Prevention Social Worker Name Role Phone Dario Kline MD Primary Care Provider [phone] Mika Reynolds W Unavailable Unavailable Radha Camejo RN Unavailable [phone] Cindy Oliver W Unavailable [phone] Francisco Akers MD Unavailable [phone] Reason for Referral * Imaging (Routine) - Pending Review Specialty Diagnoses / Procedures Referred By Contac t Referred To Contact Radiology Diagnoses Focal nodular hyperplasia of liver Procedures MR Abdomen w and wo IV Contrast Francisco Akers MD [address] [address] Phone: tel: fax: Referral ID Status Reason Start Date Expiration Date V isits Requested Visits Authorized [id number] Pending Review 02/27/2025 08/29/2026 1 1 Reason for Visit * Reason Comments Follow-up Encounter Details Date Type Department Care Team (Late st Contact Info) Description 02/25/2025 Telephone [facility] [address] [address] Radha Camejo, RN [facility] [address] [place] [address] Follow-up Social History Tobacco Use Types Packs/Day Years Used Date Smoking Tobacco: Never Smokeless Tobacco: Never Alcohol Use Standard Drinks/Week Comments No 0 (1 standard drink = 0.6 oz pur e alcohol) PHQ-2 Answer Date Recorded Patient Health Questionnaire-2 Score 0 01/15/2025 Comments Unknown Sex and Gender Information Value Date Recorded Sex Assigned at Female 01/26/2022 5:41 PM EDT Legal Sex Female 6:34 PM EDT Gender Identity Female 01/26/2022 5:41 PM EDT Sexual Orientation Straight 01/26/2022 5: 41 PM EDT documented as of this encounter Miscellaneous Notes * Telephone Encounter - Radha Camejo RN - 02/25/2025 10:45 AM EDT Called Ms. Bocanegra to discuss plans for surgical clinic follow-up. She understands that we will schedule December 2025 follow-up MRI and visit, and would like to request 2 year follow-up at that time if imaging is stable. [facility] for [facility] and visit with Dr. Akers. Sending a note to [facility] scheduling. documented in this encounter Plan of Treatment Upcoming Encounters Date Type Department Care Team (Late st Contact Info) Description 02/11/2026 11:00 AM EDT Appointment [facility] [address] [place] [address] Scheduled Orders Name Type Priority Associated Diagnoses Orde r Schedule Comprehensive Metabolic Panel Lab Routine Focal nodular hyperplasia of liver Expected: 02/11/2026 (Approximate), Expires: 08/31/2026 CBC W/O differential Lab Routine Focal nodular hyperplasia of liver Expected: 02/11/2026 (Approximate), Expires: 08/31/2026 Protime-INR Lab Routine Focal nodular hyperplasia of liver Expected: 02/11/2026 (Approximate), Expires: 08/31/2026 MR Abdomen w and wo IV Contrast Imaging Routine Focal nodular hyperplasia of liver Expected: 02/11/2026 (Approximate), Expires: 08/31/2026 documented as of this encounter Visit Diagnoses Diagnosis Focal nodular hyperplasia of liver- Primary Other specified disorders of liver documented in this encounter Additional Health Concerns Assessment Noted Time A fall risk assessment has been complete d for the patient 01/15/2025 1:22 PM EDT A Body Mass Index follow-up plan has been documented for the patient 08/29/2023 3:48 PM EST documented as of this encounter Care Teams Delinquency Prevention Social Worker Relationship Specialty Start Date End Date Dario Kline MD [address] [place] [address] PCP - General Family Medicine 01/21/22 Rodolfo, Mika W Referring Physician Gastroenterology 01/21/22 Radha Camejo, RN [facility] [address] [place] [address] Registered Nurse Transplant Surgery 01/21/22 [place] [address] Registered Nurse Transplant Surgery 01/21/22 Francisco Akers MD [address] [place] [address] Surgeon Transplant Surgery 01/26/22 documented as of this encounter
--- OUTSIDE RECORDS SUMMARY | 2025-03-18 11:14 | XMS_ITS | Encounter Summary ---
Author Organization Healthcare Address [address] [place] [address] Care Team Providers Care Employment Director Name Role Phone Evangelista Palacio MD Primary Care Provider [phone] Dario Kline MD Primary Care Provider [phone] Mika Reynolds W Unavailable Unavailable Radha Camejo RN Unavailable [phone] Cindy Oliver Unavailable [phone] Francisco Akers MD Unavailable [phone] Encounter Details Date Type Department Care Team (Late st Contact Info) Description 11/25/2021 Orders Only External Location [address] [place] [id number] Provider, External Social History Tobacco Use Types Packs/Day Years Used Date Smoking Tobacco: Never Alcohol Use Standard Drinks/Week Comments No 0 (1 standard drink = 0.6 oz pur e alcohol) Comments Unknown Sex and Gender Information Value Date Recorded Sex Assigned at Female 01/26/2022 5:41 PM EDT Legal Sex Female 6:34 PM EDT Gender Identity Female 01/26/2022 5:41 PM EDT Sexual Orientation Straight 01/26/2022 5: 41 PM EDT documented as of this encounter Plan of Treatment Upcoming Encounters Date Type Department Care Team (Late st Contact Info) Description 02/11/2026 11:00 AM EDT Appointment [facility] [address] [place] [id number] documented as of this encounter Procedures Procedure Name Priority Date/Time Associated Diagnosis Comments CT ABDOMEN OUTSIDE IMAGES 11/25/2021 7:28 AM EDT documented in this encounter Results * CT ABDOMEN OUTSIDE IMAGES (11/25/2021 7:28 AM EDT) Anatomical Region Laterality Modality Computed Tomogra phy 11/25/2021 7:28 AM EDT us External Provider IMG CT PROCEDURES Final Result documented in this encounter Visit Diagnoses Not on filedocumented in this encounter Care Teams Employment Director Relationship Specialty Start Date End Date Evangelista Palacio MD [address] [place], [place] [id number] PCP - General 01/01/21 01/20/22 Dario Kline MD [address] [facility] [address] [place] [address] PCP - General Family Medicine 01/21/22 Mika Reynolds Referring Physician Gastroenterology 01/21/22 Radha Camejo, RN [facility] [address] [place] [address] Registered Nurse Transplant Surgery 01/21/22 [place] [address] Registered Nurse Transplant Surgery 01/21/22 Francisco Akers MD [address] [facility] [address] [place] [id number] Surgeon Transplant Surgery 01/26/22 documented as of this encounter
--- OUTSIDE RECORDS SUMMARY | 2025-03-18 11:14 | XMS_ITS | Data Portability ---
Author Organization [place] - [facility] [place] Address [address] [place] [address] Care Team Providers Care Career Developer Name Role Phone CHRYSTAL WHITE Primary Care Provider [phone] Assessment No assessment recorded. Plan of Treatment Reminders Order Date Submit Date Provider Last Modified By Organization Details Last Modified Time Details Appointments None recorded. Lab urinalysis , dipstick 2022 023 [email or web address] [facility], [address] [place] [address], [address], [address], 3 10:52:47 urinalysis , dipstick 2021 022 [email or web address], [address] [place] [address], [address], [place], [address], 2 10:36:29 Referral None recorded. Procedures None recorded. Surgeries None recorded. Imaging US, renal - Please schedule in 6mos 2021 022 [email or web address] [facility] (Centralized Scheduling), [address] [place], [address], 3 13:51:53 Medication Orders None recorded. Patient TargetsNo targets recorded. Patient InstructionsNo instructions recorded. Reason for Referral None Reported. Results Created Date Observation Date Name Description Value Unit Range Abnormal Flag Note LastModifiedBy Organization Detail LastModifiedTime 07/18/2007/18/2022 urina lysis , dipst ick Leukocytes (reference range) negati ve Not Available [facility] [address] [place] [address] [address], [place], [address], 07/18/2022 10:10:33 07/18/20 22 07/18/2022 urina lysis , dipst ick Nitrite (reference range:) negati ve Not Available [facility] [address] [place] [address] [address], [place], [address], 07/18/2022 10:10:33 07/18/20 22 07/18/2022 urina lysis , dipst ick Urobilinogen (reference range) 0.2 Not Available [facility] [address] [place] [address] [address], [place], [address], 07/18/2022 10:10:33 07/18/20 22 07/18/2022 urina lysis , dipst ick Protein (reference range) negati ve Not Available [address], [place], [address], 07/18/2022 10:10:33 07/18/20 22 07/18/2022 urina lysis , dipst ick pH (reference range 5-8.5) 5.0 Not Available [facility] [address] [place] [address] [address], [place], [address], 07/18/2022 10:10:33 07/18/20 22 07/18/2022 urina lysis , dipst ick Blood (reference range:) large Not Available [facility] [address] [place] [address] [address], [place], [address], 07/18/2022 10:10:33 07/18/20 22 07/18/2022 urina lysis , dipst ick Specific Willis (reference range) 1.030 Not Available [facility] [address] [place] [address] [address], [place], [address], 07/18/2022 10:10:33 07/18/20 22 07/18/2022 urina lysis , dipst ick Ketone (reference range) negati ve Not Available [address], [place], [address], 07/18/2022 10:10:33 07/18/20 22 07/18/2022 urina lysis , dipst ick Bilirubin (reference range) negati ve Not Available [address], [place], [address], 07/18/2022 10:10:33 07/18/20 22 07/18/2022 urina lysis , dipst ick Glucose (reference range) 500 Not Available [address] [address], [place], [address], 07/18/2022 10:10:33 07/18/20 22 07/18/2022 urina lysis , dipst ick Color (reference range: yellow-brown ) Yellow Not Available [address] [address], [place], [address], 07/18/2022 10:10:33 08/29/19 23 08/29/2022 urina lysis , dipst ick Leukocytes (reference range) negati ve Not Available [address] [facility], [place], [address], 08/29/2022 10:26:28 08/29/19 23 08/29/2022 urina lysis , dipst ick Nitrite (reference range:) negati ve Not Available [address], [place], [address], 08/29/2022 10:26:28 08/29/19 23 08/29/2022 urina lysis , dipst ick Urobilinogen (reference range) 0.2 Not Available [address], [place], [address], 08/29/2022 10:26:28 08/29/19 23 08/29/2022 urina lysis , dipst ick Protein (reference range) negati ve Not Available [facility] [address] [place] [address] [address], [place], [address], 08/29/2022 10:26:28 08/29/19 23 08/29/2022 urina lysis , dipst ick pH (reference range 5-8.5) 6.[address] [facility] [address] [place] [address] [address], [place], [address], 08/29/2022 10:26:28 08/29/19 23 08/29/2022 urina lysis , dipst ick Blood (reference range:) negati ve Not Available [address], [place], [address], 08/29/2022 10:26:28 08/29/19 23 08/29/2022 urina lysis , dipst ick Specific Willis (reference range) 1.015 Not Available [facility], [place], [address], 08/29/2022 10:26:28 08/29/19 23 08/29/2022 urina lysis , dipst ick Ketone (reference range) negati ve Not Available [facility] [address] [place] [address] [address], [place], [address], 08/29/2022 10:26:28 08/29/19 23 08/29/2022 urina lysis , dipst ick Bilirubin (reference range) negati ve Not Available [address], [place], [address], 08/29/2022 10:26:28 08/29/19 23 08/29/2022 urina lysis , dipst ick Glucose (reference range) negati ve Not Available [facility] [address] [facility] [address], [place], [address], 08/29/2022 10:26:28 08/29/19 23 08/29/2022 urina lysis , dipst ick Color (reference range: yellow-brown ) Yellow Not Available [facility] [address] [facility] [address], [place], [address], 08/29/2022 10:26:28 06/21/20 22 06/20/2022 renal ,bila teral [facility] [address] [place] [address] Phone: Fax: Name: VANESSA BOCANEGRA Exam Date: 2021 : [birth year] Age 56 Gender : F Access ion: [id number] Physic aureliano: ABHIJEET MARIA L Facili ty: [facility] Facili ty HSV: Outpat ient Exam: RENAL, BILATE RAL US RENAL ULTRAS OUND HISTOR Y: Abnorm al liver ultras ound showin g a renal cystic lesion . PROCED URE: Ultras ound images of the kidney s were obtain ed. FINDIN GS: Limite d images of the liver parenc hyma demons trate increa sed echoge nicity . The right kidney measur es 15 cm in length . It is normal echoge nicity . There is no hydron ephros is. There is an 8.3 cm hypoec hoic lesion consis tent with a cyst. The left kidney measur es 13 cm in length . It is normal echoge nicity . There is no hydron ephros is. IMPRES FERNANDO: 1. 8.3 cm right renal cyst. 2. Fatty infilt ration of the liver. Films review ed , interp reted and dictat ed by Dr. Megan Mulligan Transc ribed by Gerardo Lea PA-C. Dictat ed By: Megan Li Transc ribed By: Megan Mulligan Transc ribed On: 9:15 AM Electr onical ly signed by: Megan Li Thank you for referr jemal [facility] Legall y authen ticate d by NADEEM ELLIOTT 2021-08 09:15: 21 CC'ed Logic: Orderi ng Provid er: CROW Maria Attend ing Provid er: CROW Maria Referr ing Provid er: CROW Maria Admitt ing Provid er: CROW Maria [email or web address] [facility] - Physical Therapy [address] [facility], [place], [address], 06/21/2022 14:53:00 07/04/20 22 12/31/2021 MRI, abdom en, w/wo contr ast No observ ation record ed. [email or web address] [facility] ([facility]) [address] [facility], [place], [address], 07/04/2022 11:16:54 07/28/20 MRI, abdom en, w/wo contr ast No observ ation [facility] ed[facility] [place] [address] Imaging [address] [place], [address], 08/03/2022 08:23:38 03/31/20 23 03/31/2023 renal ,bila teral [facility] [address] [place] [address] Phone: Fax: Name: VANESSA BOCANEGRA Exam Date: : [birth year] Age 57 Gender : F Access ion: [id number] Physic aureliano: ABHIJEET MARIA Facili ty: [facility] Facili ty HSV: Outpat ient Exam: RENAL, BILATE RAL US RENAL ULTRAS OUND HISTOR Y: Renal cyst. COMPAR DIONY: 2021. PROCED URE: Ultras ound images of the kidney s were obtain ed. FINDIN GS: Limite d images of the liver parenc hyma demons trate normal echoge nicity . The right kidney measur es 10.4 cm in length . There is a 7.9 cm simple appear ing cyst identi fied in the lower pole of the right kidney . Previo usly, this measur ed up to 8.3 cm. Size differ ence is likely second meg to techni que. It is normal echoge nicity . There is no hydron ephros is. The left kidney measur es 11.2 cm in length . It is normal echoge nicity . There is no hydron ephros is. IMPRES FERNANDO: Stable benign -appea ring right renal cyst. Films review ed , interp reted and dictat ed by Dr. Hill . Transc ribed by Eamon Jordan PA-C. Dictat ed By: MARY HILL Transc ribed By: Rosendo Hill Transc ribed On: 023 2:38 PM Electr onical ly signed by: MARY HILL 023 Thank you for referr VANESSA Weller to [facility]. Legall y authen ticate d by SERGIO JACOBS 03-31 14:38: 59 CC'ed Logic: Orderi ng Provid er: CROW Maria Attend ing Provid er: CROW Maria Referr ing Provid er: CROW Maria Admitt ing Provid er: CROW Maria [email or web address] [facility] Therapy [address] [facility], [place], [address], 04/03/2023 08:33:54 Result Notes None recorded. Problems Name Problem SNOMED Code Status Onset Date Resolution Date Notes Provider Name and Address Organization Details Recorded Time Cyst of kidney 162798104 Active 2021 Not Available [facility] 3 16:43:43 Nocturia 295696927 Active 2021 Not Available [facility] 3 16:43:43 Urinary incontinence 567860897 Active 2021 Not Available [facility] 3 16:43:43 Problem Notes None recorded. Medical Equipment None Reported. Allergies No known drug allergies Medications Name Sig Start Date Stop Date Status Note LastModified by Organization Details LastModified Time promethazin e-DM 6.25 mg-15 mg/5 mL oral syrup active Not Available Not Available Not Available clindamycin HCl 300 mg capsule 07/18 completed Not Available Not Available Not Available azithromyci n 250 mg tablet 07/18 completed Not Available Not Available Not Available benzonatate 100 mg capsule 07/18 completed Not Available Not Available Not Available cephalexin 500 mg capsule 07/18 completed Not Available Not Available Not Available clotrimazol e-betametha sone 1 %-0.05 % topical cream 07/18 completed Not Available Not Available Not Available bromphenira mine-pseudo ephedrine-D M 2 mg-30 mg-10 mg/5 mL oral syrup TAKE 5 TO 10MLS BY MOUTH 4 TIMES DAILY NEEDED 07/18 completed Not Available Not Available Not Available ondansetron 4 mg disintegrat ing tablet 07/18 completed Not Available Not Available Not Available metformin ER 500 mg tablet,exte nded release 24 hr active Not Available Not Available Not Available clindamycin phosphate 1 % topical solution 07/18 completed Not Available Not Available Not Available escitalopra m 20 mg tablet TAKE 1 TABLET BY MOUTH EVERY DAY FOR 90 DAYS active Not Available Not Available No t Available Abilify 5 mg tablet Take 1 tablet every day by oral route. active Not Available Not Available No t Available nitrofurant oin monohydrate /macrocryst als 100 mg capsule 07/18 completed Not Available Not Available Not Available aripiprazol e 2 mg tablet active Not Available Not Available Not Available Januvia 100 mg tablet active Not Available Not Available No t Available Minivelle 0.1 mg/24 hr transdermal patch PLEASE SEE ATTACHED FOR DETAILED DIRECTION S active Not Available Not Available No t Available QuickVue At-Home COVID-19 Test kit 07/18 completed Not Available Not Available Not Available Lagevrio 200 mg capsule (EUA) TAKE 4 CAPSULES BY MOUTH EVERY 12 HOURS FOR 5 DAYS 07/18 completed Not Available Not Available Not Available Vitals Date Recorded Body height Body mass index (BMI) Body weight Body temperature Systolic And Diastolic Provider Name and Address Organization Details Last Updated DateTime 08/29/2022 175.26 cm 32.3 kg/m2 60647.7 3 g 98 [degF] 122/70 mm[Hg] Marbella Aquino [place] - [facility] [place] 3 10:28:54 Date Recorded Body height Body mass index (BMI) Body weight Body temperature Systolic And Diastolic Provider Name and Address Organization Details Last Updated DateTime 07/18/2022 175.26 cm 32.5 kg/m2 24798.3 2 g 97.3 [degF] 130/82 mm[Hg] Cristine Gutierrez [place] - [facility] [place] 2 10:03:22 Social History None recorded. Functional Status Question Answer Note LastModified by Organizat ion Details LastModified Time Do you use any illicit or recreational drugs? No CHART_MERGE Information not available 08/25/2022 What is your level of alcohol consumption? None CHART_MERGE Information not available 08/25/2022 Mental Status None recorded. Family History Relationship Description Onset Age of this Age Resolved Age Notes LastModified by Organization Details LastModified Time Mother Chronic obstructive pulmonary disease pt. added direct ly (08/26) [email or web address] Not available 08/26/2022 14:38:01 Mother Headache pt. added direct ly (08/26) [email or web address] Not available 08/26/2022 14:38:19 Mother Mental health problem pt. added direct ly (08/26) [email or web address] Not available 08/26/2022 14:39:11 Sister Chronic obstructive pulmonary disease pt. added direct ly (08/26) [email or web address]-13 Not available 08/26/2022 14:38:01 Sister Mental health problem pt. added direct ly (08/26) [email or web address]-13 Not available 08/26/2022 14:39:11 Sister Substance abuse pt. added direct ly (08/26) [email or web address] Not available 08/26/2022 14:39:33 Father Disease of liver pt. added direct ly (08/26) [email or web address]-13 Not available 08/26/2022 14:38:08 Maternal Grandmother Heart disease pt. added direct ly (08/26) [email or web address]-13 Not available 08/26/2022 14:38:42 Paternal Grandfather Heart disease pt. added direct ly (08/26) [email or web address]-13 Not available 08/26/2022 14:38:42 Maternal Aunt Kidney disease pt. added direct ly (08/26) [email or web address]-13 Not available 08/26/2022 14:38:53 Brother Mental health problem pt. added direct ly (08/26) [email or web address]-13 Not available 08/26/2022 14:39:11 Brother Substance abuse pt. added direct ly (08/26) [email or web address]-13 Not available 08/26/2022 14:39:33 Notes:Father- liver cancer ( ) Medical History Condition Response Diabetes Y Gynecological HistoryNo gynecological history recorded. Obstetrics History GPAL:G 0 P 0 0 0 0 Past Encounters Encounter ID Performer Location Encounter Start Date Encounter Closed Date Diagnosis/Indication Diagnosis SNOMED-CT Code Diagnosis ICD10 Code Diagnosis Note [id number] Lizzie Maria NP, [facility] [address] [place] [address] 07/18/2022 09:26:20 07/18/2022 10:32:15 Cyst of kidney 650842432 N28.1 Renal ultrasound results discussed with patient clinic today. Will schedule follow-up renal ultrasound in 6 months. We have called Dr. Flaherty office to have records sent to us. Patient will follow-up with us in 6 weeks for follow-up. Records received from Dr. Flaherty office. patient underwent cystoscopy with biopsy of bladder neck urethral polyps. Pathology was negative for dysplasia or malignancy . Female str ess incontinence 89763716 N39.3 Nocturia 222531016 R35.1 Fletcher hematuria 17447272 5 R31.0 [id number] Lizzie Maria NP, [facility] [address] [place] [address],[facility] [address] [place] [address] 08/29/2022 09:45:06 08/29/2022 11:04:19 Fletcher hematuria 966378233 R31.0 Cyst of kidney 709245201 N28.1 UA clearPatie nt having follow-up renal ultrasound in December of 2022.Retur n to clinic in 6 months for follow-up Nocturia 503520627 R35.1 Female str ess incontinence 94427136 N39.3 Health Concerns Section Related Observation LastModified by Organization Detai ls LastModified Time None Recorded Concern Status LastModified by Organization Details LastModified Time None Recorded Advance Directives Directive None Recorded Payers Insurance Date Sequence Insurance Name Policy Number Policy Rizzo Covered Member ID Rizzo Member ID Guarantor Name 03/09/2024 1 [place] [id number] Vishnu Bocanegra [id number] Brittany Bocanegra OBGyn Episode No OBEpisode recorded.
--- OUTSIDE RECORDS SUMMARY | 2025-03-18 11:14 | XMS_ITS | Encounter Summary ---
Author Organization Healthcare Address [address] [place] [address] Care Team Providers Care Automotive Quality Manager Name Role Phone Evangelista Palacio MD Primary Care Provider [phone] Dario Kline MD Primary Care Provider [phone] Mika Reynolds W Unavailable Unavailable Radha Camejo RN Unavailable [phone] Cindy Oliver Unavailable [phone] Francisco Akers MD Unavailable [phone] Encounter Details Date Type Department Care Team (Late st Contact Info) Description 11/25/2021 Orders Only External Location [address] [place] [address] Provider, External Social History Tobacco Use Types [...] 11:00 AM EDT Appointment [facility] [address] [place] [address] documented as of this encounter Procedures Procedure Name Priority Date/Time Associated Diagnosis Comments CT ABDOMEN OUTSIDE IMAGES 11/25/2021 7:57 AM EDT documented in this encounter Results * CT ABDOMEN OUTSIDE IMAGES (11/25/2021 7:57 AM EDT) Anatomical Region Laterality Modality Computed Tomogra phy 11/25/2021 7:57 AM EDT us External Provider IMG CT PROCEDURES Final Result documented in this encounter Visit Diagnoses Not on filedocumented in this encounter Care Teams Automotive Quality Manager Relationship Specialty Start Date End Date Evangelista Palacio MD [address] [place] [address] PCP - General 01/01/21 01/20/22 Dario Kline MD [address] [facility] [address] [place] [address] PCP - General Family Medicine 01/21/22 Mika Reynolds Referring Physician Gastroenterology 01/21/22 Radha Camejo, RN [facility] [address] [place] [address] Registered Nurse Transplant Surgery 01/21/22 [place] [address] Registered Nurse Transplant Surgery 01/21/22 Francisco Akers MD [address] [facility] [address] [place] [address] Surgeon Transplant Surgery 01/26/22 documented as of this encounter
--- OUTSIDE RECORDS SUMMARY | 2025-03-18 11:14 | XMS_ITS | Encounter Summary ---
Author Organization Healthcare Address [address] [place] [address] Care Team Providers Care Polishing Wheel Setter Name Role Phone Evangelista Palacio MD Primary Care Provider [phone] Dario Kline MD Primary Care Provider [phone] Mika Reynolds W Unavailable Unavailable Radha Camejo RN Unavailable [phone] Cindy Oliver Unavailable [phone] Francisco Akers MD Unavailable [phone] Encounter Details Date Type Department Care Team (Late st Contact Info) Description 12/31/2021 Orders Only External Location [address] [place] [address] Provider, External Social History Tobacco Use Types [...] Info) Description 02/11/2026 11:00 AM EDT Appointment [facility] [address] [place] [address] documented as of this encounter Procedures Procedure Name Priority Date/Time Associated Diagnosis Comments MR ABDOMEN OUTSIDE IMAGES 12/31/2021 9:35 AM EDT documented in this encounter Results * MR ABDOMEN OUTSIDE IMAGES (12/31/2021 9:35 AM EDT) Anatomical Region Laterality Modality Magnetic Resonan ce 12/31/2021 9:35 AM EDT us External Provider IMG MRI PROCEDURES Final Resul t documented in this encounter Visit Diagnoses Not on filedocumented in this encounter Care Teams Polishing Wheel Setter Relationship Specialty Start Date End Date Evangelista Palacio MD [address] [place] [address] PCP - General 01/01/21 01/20/22 Dario Kline MD [address] [facility] [address] [place] [address] PCP - General Family Medicine 01/21/22 Mika Reynolds Referring Physician Gastroenterology 01/21/22 Radha Camejo, RN [facility] [address] [place] [address] Registered Nurse Transplant Surgery 01/21/22 [place] [address] Registered Nurse Transplant Surgery 01/21/22 Francisco Akers MD [address] [facility] [address] [place] [address] Surgeon Transplant Surgery 01/26/22 documented as of this encounter
--- OUTSIDE RECORDS SUMMARY | 2025-03-18 11:14 | XMS_ITS | Clinical Summary ---
Author Organization [facility] Address [address] [place] [address] Care Team Providers Care Shoe Reconditioner Name Role Phone Evangelista Palacio MD Primary Care Provider + Allergies No known active allergies Medications tiZANidine (ZANAFLEX) 4 MG tablet Take 4 mg by mouth at night as needed for muscle spasms. Active escitalopram (LEXAPRO) 10 MG tablet Take 10 mg by mouth daily. Active estradiol (MINIVELLE, VIVELLE-DOT) 0.1 MG/24HR patch Place 1 patch on the skin every day. Active vitamin E 100 UNIT capsule Take 100 Units by mouth daily. Active Vit-Fe Fumarate-FA ( VITAMIN PO) Take 1 tablet by mouth daily. Active vitamin B-12 (CYANOCOBALAMIN) 100 MCG tablet Take 50 mcg by mouth daily. Active Active Problems Problem Noted Date Diagnosed Date SVT (supraventricular tachycardia) Overview (05/04/2016): a. Chronic palpitations. b. Event recorder, May 2015, showed repetitive significant SVT consistent with AVNRT. c. Status post EP study on 09/18/2015, consistent with AVNRT, of the common type. Successful slow pathway ablation. d. Patient with recurrent tachypalpitations; however, totally different from what she is having now, more like skipped beats. Also with some short runs; however, not as long lasting at the AVNRT that she had in the past. e. 11/23/2015: EKG shows normal sinus rhythm with sinus arrhythmia. Ventricular rate 79 beats per minute, OR interval 130 ms, QRS duration 96 ms, QTc 440 ms. Anxiety Fibrocystic breast Rapid palpitations Overview (05/04/2016): with skipped beats, and very short lasting tachypalpitations Social History Tobacco Use Types Packs/Day Years Used Date Smoking Tobacco: Never Alcohol Use Standard Drinks/Week Comments No 0 (1 standard drink = 0.6 oz pur e alcohol) Abuse Screen Answer Date Recorded Unsafe at Home or Work/School Not on file Feels Threatened by Someone? Not on file 04/2023 Does Anyone Keep You from Co ntacting Others or Doint Things Outside the Home? Not on file 05/29/2023 Physical Sign of Abuse Present Not on file 1 Housing Stability Answer Date Recorded Current Living Arrangements Not on file 04/2023 Potentially Unsafe Housing Conditions Not on austin e 05/29/2023 Family and Community Support Answer Scot e Recorded Help with Day-to-Day Activities Not on file 05/29/2023 Lonely or Isolated Not on file 05/29/2023 Employment Answer Date Recorded Do you want help finding or keeping work or a rao b? Not on file 05/29/2023 Disabilities Answer Date Recorded Concentrating, Remembering, or Making Decisions Difficulty Not on file 05/29/2023 Doing Errands Independently Difficulty Not on fi le 05/29/2023 Education Answer Date Recorded Help with school or training? Not on file Preferred Language Not on file 05/29/2023 Comments Unknown Sex and Gender Information Value Date Recorded Sex Assigned at Not on file Legal Sex Female 10:40 AM EDT Gender Identity Not on file Sexual Orientation Not on file Last Filed Vital Signs Vital Sign Reading Time Taken Comments Blood Pressure 102/50 05/11/2016 10:33 AM EDT Pulse 64 05/11/2016 10:33 AM EDT Temperature - - Respiratory Rate - - Oxygen Saturation - - Inhaled Oxygen Concentration - - Weight 86.4 kg (190 lb 8 oz) 05/11/2016 10:33 AM EDT Height 175.3 cm (5' 9 ) 05/11/2016 10:33 AM EDT Body Mass Index 28.13 05/11/2016 10:33 AM EDT Plan of Treatment Health Maintenance Due Date Last Done Comments ANNUAL PHYSICAL 1965 Annual Gynecologic Pelvic and Breast Exam 1965 HEPATITIS C SCREENING 1965 TDAP/TD VACCINES (1 - Tdap) 12/10/1986 COLOGUARD 12/10/2012 COLON CANCER SCREENING 5 YEAR SIGMOIDOSCOPY 12/10/2012 COLONOSCOPY 12/10/2012 COLORECTAL CANCER SCREENING 12/10/2012 CT COLONOGRAPHY 12/10/2012 FECAL OCCULT BLOOD TEST 12/10/2012 FIT Testing (1 year) 12/10/2012 MAMMOGRAM 06/24/2016 06/24/2014 Pneumococcal Vaccine 50+ (1 of 1 - PCV) 12/10/2017 ZOSTER VACCINE (1 of 2) 12/10/2017 COVID-19 Vaccine (1 - 2023- season) 2024 INFLUENZA VACCINE 05/21/2025 Procedures Procedure Name Priority Date/Time Associated Diagnosis Comments MAMMO SCREENING BILATERAL W CAD Routine 06/24/2014 2:10 PM EST from Last 3 Months or Most Recently Relevant to Health Maintenance Results * MAMMOGRAPHY SCREENING BILATERAL (06/24/2014 2:10 PM EST) Anatomical Region Laterality Modality Breast Bilateral Mammography 06/24/2014 2:10 PM EST Narrative 06/26/2014 2:43 PM EST BILATERAL SCREENING MAMMOGRAM WITH TOMOSYNTHESIS - 06/24/2014: HISTORY: No personal or significant family history of breast cancer and no new breast complaints. TECHNIQUE: Low dose full field digital breast tomosynthesis imaging was performed with 2D and 3D acquisitions. COMPARISON: [facility] mammogram dated 05/28/2013. FINDINGS: The breast tissue is heterogeneously dense, which may obscure small masses. The bilateral fibroglandular pattern is stable. There are no new or suspicious findings. IMPRESSION- Negative bilateral mammogram. RECOMMENDATION: Continue annual screening mammography. BI-RADS CATEGORY I, NEGATIVE. CAD was utilized. The standard false-negative rate of mammography is between 10% and 25%. Complex patterns or increased breast density will markedly elevate the false-negative rate of mammography. A letter, in lay terminology, with the results of this exam will be mailed to the patient. Reading Radiologist- KEON RUIZ Releasing Radiologist- KEON RUIZ Released Date Time- 06/26/14 [address] [place] [address] Jeff Cohn MD IMG MAMMOGRAPHY ORDERABL ES Final Result from Last 3 Months or Most Recently Relevant to Health Maintenance Insurance [facility] BL[facility] PPO Care Teams Shoe Reconditioner Relationship Specialty Start Date End Date Evangelista Palacio MD PCP - General 09/17/15
--- OUTSIDE RECORDS SUMMARY | 2025-03-18 11:14 | XMS_ITS | Patient Health Record ---
[facility] Organization [facility] Address [address] [id number] Care Team Providers Care Hvac Residential Service Technician Name Role Phone Dave Kline Primary Care Provider Jr Melendez Unavailable [phone] Megan Amy Unavailable [phone] Liliana Dooley Unavailable [phone] Allergies Allergen (clinical drug ingredient) Drug/Non Drug Allergy documented on EMR Reaction Allergy Type Onset Date Status metformin metFORMIN diarrhea Drug Allergy Active Results Component Value Reference Range Notes Urinalysis - Inhouse (Not ye t reviewed by provider) Interpretation: Performing Lab: Notes/Report: Color/Clarity yellow/cloudy Leuk neg Nitrite neg Urobili 3.2 Protein 1+ pH 5.5 Blood neg Sp. Gr. 1.030 Ketone neg Bili neg Gluc neg CBC Venipuncture (in house) (Not yet reviewed by provider) Interpretation: Performing Lab: Notes/Report: wbc 8.3 3.5 - 10 lymph 25.7 15 - 50 mid 6.1 2 - 15 gran 68.2 35 - 80 rbc 5.28 3.5 - 5.5 hgb 15.5 11.5 - 16.5 hct 45.5 35 - 55 mcv 86.0 75 - 100 mch 29.4 25 - 35 mchc 34.2 31 - 38 platlet 278 100 - 400 Glycohemoglobin A1c (in hous e) (Not yet reviewed by provider) Interpretation: Performing Lab: Notes/Report: glycohemoglobin 5.5% 5 - 6.5 % P-TSH reflex to FT4 Reviewed date:10/02/2024 01:16:23 PM Interpretation: Performing Lab: Notes/Report: Test performed by [facility] [address] [place] [address] , [address], [place] [address] Jesse Sheehan MD, [employer] CLIA: [id number] TSH reflex to FT4 0.53 0.43-5.25 mU/L CBC Venipuncture (in house) Reviewed date:10/18/2024 03:46:47 PM Interpretation: Performing Lab: Notes/Report: wbc 5.6 3.5 - 10 lymph 41.1% 15 - 50 mid 7.3% 2 - 15 gran 51.6% 35 - 80 rbc 5.12 3.5 - 5.5 hgb 15.1 11.5 - 16.5 hct 43.0 35 - 55 mcv 84.0 75 - 100 mch 29.5 25 - 35 mchc 35.0 31 - 38 platlet 176 100 - 400 CBC Venipuncture (in house) Reviewed date:09/25/2024 01:21:09 PM Interpretation: Performing Lab: Notes/Report: wbc 7.1 3.5 - 10 lymph 29.8% 15 - 50 mid 5.4% 2 - 15 gran 64.8% 35 - 80 rbc 5.36 3.5 - 5.5 hgb 15.6 11.5 - 16.5 hct 45.4 35 - 55 mcv 84.7 75 - 100 mch 29.1 25 - 35 mchc 34.4 31 - 38 platlet 239 100 - 400 Glycohemoglobin A1c (in hous e) Reviewed date:09/26/2024 12:50:12 PM Interpretation: Performing Lab: Notes/Report: glycohemoglobin 5.4% 5 - 6.5 % P-Comprehensive Metabolic Pa edmundo (CMP) Reviewed date:10/02/2024 01:16:02 PM Interpretation: Performing Lab: Notes/Report: Test performed by [facility] [address] [place] [address] , [address], [place] [address] Jesse Sheehan MD, [employer] CLIA: [id number] Sodium 142 135-145 mmol/L Potassium 4.1 3.5-5.3 mmol/L Chloride 105 97-108 mmol/L CO2 23 22-32 mmol/L Glucose 97 65-99 mg/dL BUN 21 6-20 mg/dL Creatinine 0.77 0.50-1.00 mg/dL Calcium 9.3 8.6-10.4 mg/dL eGFR by Creatinine 90 >59 mL/min/1.73m2 Protein 7.2 6.0-8.3 g/dL Albumin 4.4 3.5-5.3 g/dL Alkaline Phosphatase 102 35-121 IU/L ALT (SGPT) 31 <5-47 IU/L AST (SGOT) 21 <5-40 IU/L Bilirubin, Total 0.3 <0.2-1.2 mg/dL A/G Ratio 1.6 1.1-2.5 P-Lipid Panel Reviewed date:10/02/2024 01:16:08 PM Interpretation: Performing Lab: Notes/Report: Test performed by [facility] [address] , [place] [address] Jesse Sheehan MD, [employer] CLIA: [id number] Cholesterol 116 <200 mg/dL Triglycerides 128 <150 mg/dL HDL Cholesterol 44 >39 mg/dL Cholesterol / HDL Ratio 2.64 0.00-4.44 Ratio Non-HDL Cholesterol 72 <130 mg/dL LDL Cholesterol (Calculation) 46 <130 mg/dL LDL Cholesterol Levels* Less than 100 mg/dL Optimal 100 to 129 mg/dL Near Optimal/ Above Optimal 130 to 159 mg/dL Borderline High 160 to 189 mg/dL High 190 mg/dL and above Very High * Categories as recommended by the 2004 ATPIII guidelines LDL/HDL Ratio 1.1 <3.3 Ratio _ LDL Cholesterol Patient History _ Test Date: 02/23/2024 LDL Results: 47 Units: mg/dL % Change: +11% - Test Date: 06/27/2024 LDL Results: 45 Units: mg/dL % Change: -4% - Test Date: 09/25/2024 LDL Results: 46 Units: mg/dL % Change: +2% _ P-Vitamin D 25-Hydroxy Reviewed date:10/02/2024 01:16:16 PM Interpretation: Performing Lab: Notes/Report: Test performed by [facility] [address] [place] [address] , [address] , [place] [address] Jesse Sheehan MD, [employer] CLIA: [id number] Vitamin D 25-Hydroxy 61.4 30.0-100.0 ng/mL Interpretation of Vitamin D 25 OH: < 20 ng/mL - Deficiency 20 - 29 ng/mL - Insufficiency 30 - 100 ng/mL - Sufficiency > 100 ng/mL - Super-therapeutic- toxicity may occur above this level. Clinical correlation required. Glucose (In-House) Reviewed date:10/28/2024 01:09:23 PM Interpretation:107 Performing Lab: Notes/Report: 107 blood glucose 107 74 - 106 mg/dL Glucose (In-House) Reviewed date:11/12/2024 02:44:11 PM Interpretation:114 Performing Lab: Notes/Report: 114 blood glucose 114 74 - 106 mg/dL CBC Venipuncture (in house) Reviewed date:06/27/2024 02:05:48 PM Interpretation: Performing Lab: Notes/Report: wbc 8.8 3.5 - 10 lymph 30.0 15 - 50 mid 7.8 2 - 15 gran 62.2 35 - 80 rbc 5.47 3.5 - 5.5 hgb 16.0 11.5 - 16.5 hct 47.5 35 - 55 mcv 86.8 75 - 100 mch 29.3 25 - 35 mchc 33.8 31 - 38 platlet 268 100 - 400 Glycohemoglobin A1c (in hous e) Reviewed date:06/28/2024 08:52:14 AM Interpretation: Performing Lab: Notes/Report: glycohemoglobin 5.9% 5 - 6.5 % P-Comprehensive Metabolic Pa edmundo (CMP) Reviewed date:06/28/2024 08:52:14 AM Interpretation: Performing Lab: Notes/Report: Test performed by [facility] [address] [place] [address] , [address], [place] [address] Jesse Sheehan MD, [employer] CLIA: [id number] Sodium 140 135-145 mmol/L Potassium 4.3 3.5-5.3 mmol/L Chloride 104 97-108 mmol/L CO2 26 22-32 mmol/L Glucose 102 65-99 mg/dL BUN 18 6-20 mg/dL Creatinine 0.72 0.50-1.00 mg/dL Calcium 9.3 8.6-10.4 mg/dL eGFR by Creatinine 98 >59 mL/min/1.73m2 Protein 7.3 6.0-8.3 g/dL Albumin 4.7 3.5-5.3 g/dL Alkaline Phosphatase 111 35-121 IU/L ALT (SGPT) 49 <5-47 IU/L AST (SGOT) 32 <5-40 IU/L Bilirubin, Total 0.4 <0.2-1.2 mg/dL A/G Ratio 1.8 1.1-2.5 P-Lipid Panel Reviewed date:06/28/2024 08:52:14 AM Interpretation: Performing Lab: Notes/Report: Test performed by [facility] [address] [place], [place] [address] [address] , [address], [place] [address] Jesse Sheehan MD, [employer] CLIA: [id number] Cholesterol 118 <200 mg/dL Triglycerides 128 <150 mg/dL HDL Cholesterol 47 >39 mg/dL Cholesterol / HDL Ratio 2.51 0.00-4.44 Ratio Non-HDL Cholesterol 71 <130 mg/dL LDL Cholesterol (Calculation) 45 <130 mg/dL LDL Cholesterol Levels* Less than 100 mg/dL Optimal 100 to 129 mg/dL Near Optimal/ Above Optimal 130 to 159 mg/dL Borderline High 160 to 189 mg/dL High 190 mg/dL and above Very High * Categories as recommended by the 2004 ATPIII guidelines LDL/HDL Ratio 1.0 <3.3 Ratio _ LDL Cholesterol Patient History _ Test Date: 11/17/2023 LDL Results: 42 Units: mg/dL % Change: -69% - Test Date: 02/23/2024 LDL Results: 47 Units: mg/dL % Change: +11% - Test Date: 06/27/2024 LDL Results: 45 Units: mg/dL % Change: -4% _ P-TSH reflex to FT4 Reviewed date:06/28/2024 08:52:14 AM Interpretation: Performing Lab: Notes/Report: Test performed by [facility] [address] [place] [address] , [address], [place] [address] Jesse Sheehan MD, [employer] CLIA: [id number] TSH reflex to FT4 0.56 0.43-5.25 mU/L P-Vitamin D 25-Hydroxy Reviewed date:06/28/2024 08:52:14 AM Interpretation: Performing Lab: Notes/Report: Test performed by [facility] [address] [place] [address] , [address], [place] [address] Jesse Sheehan MD, [employer] CLIA: [id number] Vitamin D 25-Hydroxy 71.0 30.0-100.0 ng/mL Interpretation of Vitamin D 25 OH: < 20 ng/mL - Deficiency 20 - 29 ng/mL - Insufficiency 30 - 100 ng/mL - Sufficiency > 100 ng/mL - Super-therapeutic- toxicity may occur above this level. Clinical correlation required. Reason For Referral No Information Medications Medication SIG (Take, Route, Frequency, Duration) Notes Start Date End Date Status DULoxetine HCl 40 MG TAKE 1 CAPSULE BY MOUTH ONCE DAILY; Duration: 30 Active Rosuvastatin Calcium 5 MG 1 tablet Orally Once a day; Duration: 90 days Active Mounjaro 10 MG/0.5ML as directed Subcutaneous weekly; Duration: 30 days 03/18/2025 Active Shraddha 0.1 MG/24 HOURS TWICE WEEKLY 1 PATCH TRANSDERMALLY 2 TIMES A WEEK; Duration: 30 DAY(S) *Please review and pick correct strength-formulati on from [email or web address] options. If intended option is not shown, discontinue and re-order from Quick Search* Active Immunizations Vaccine Route Administration Date Status Comme nts COVID 19 Moderna Unknown 12/03/2020 Administered COVID 19 Moderna Unknown 12/31/2020 Administered COVID 19 Moderna Unknown 10/08/2021 Administered DT, 7 YEARS OR OLDER Unknown 10/24/1996 Administered Fluzone Quad (6months&older) IM Intramuscular 05/13/2019 Administered Fluzone Quad (6months&older) IM Intramuscular 05/02/2020 Administered Fluzone Quad (6months&older) IM Intramuscular 06/18/2022 Administered Fluzone Quad (6months&older) IM Intramuscular 06/27/2024 Administered PNEUMOVAX 23 VACCINE IM Intramuscular 05/13/2019 Administe red Shingrix IM Intramuscular 11/13/2021 Administered Tetanus Tdap-Adacel (over 7yrs) IM Intramuscular 06/18/2022 Administered Problems Problem Type SNOMED Code ICD Code Onset Dates Problem Status W/U Status Risk Notes Problem Type 2 diabetes mellitus (49222062) Type 2 diabetes mellitus (E11.9) Active confirmed Problem Vitamin D deficiency (00714556) Vitamin D deficiency (E55.9) Active confirmed Problem Hypoglycemia (231584092) Hypoglycemia (E16.2) Active confirmed Problem Mixed anxiety and depressive disorder (377063870) Depression with anxiety (F41.8) Active confirmed Problem Mixed hyperlipidemia (057878753) Mixed hyperlipidemia (E78.2) Active confirmed Problem Insomnia (409190746) Other insomnia (G47.09) Active confirmed Problem Reactive depression (situational) (61075480) Situational depression (F43.21) Active confirmed Problem Sleep disturbance (81038425) Sleep disturbance (G47.9) Active confirmed Problem Chronic fatigue syndrome (72438293) Chronic fatigue (R53.82) Active confirmed Problem Type II diabetes mellitus without complication (520690195) Type 2 diabetes mellitus without complication, without long-term current use of insulin (E11.9) Active confirmed Vital Signs Heart Rate 88 /min 03/18/2025 Blood pressure diastolic 80 mm Hg 03/18/2025 Height 70 in 03/18/2025 Blood pressure systolic 140 mm Hg 03/18/2025 Weight 200.8 lbs 03/18/2025 BMI 28.81 kg/m2 03/18/2025 Encounters Encounter Location Date Provider Diagnosis [facility] [address] [facility] [address] [id number] 06/27/2024 Liliana Dooley Type 2 diabetes mellitus without complication, without long-term current use of insulin E11.9 ; Mixed hyperlipidemia E78.2 ; Vitamin D deficiency E55.9 ; Other insomnia G47.09 ; Sebaceous cyst L72.3 ; Neoplasm of uncertain behavior of skin of ear D48.5 and Encounter for immunization Z23 [facility] [address] [place] [id number] 09/25/2024 Liliana Dooley Type 2 diabetes mellitus without complication, without long-term current use of insulin E11.9 ; Mixed hyperlipidemia E78.2 ; Vitamin D deficiency E55.9 ; Other insomnia G47.09 and Bilateral impacted cerumen H61.23 [facility] [address] [place], [place] [id number] 10/18/2024 Jr Wells Tannery Influenza A J10.1 [facility] [address] [place], [place] [id number] 10/28/2024 Amyrenetta Guzman Type 2 diabetes mellitus E11.9 and Depression 311 [facility] [address] [place], [place] [id number] 11/11/2024 Amyrenetta Guzman Hypoglycemia E16.2 ; Depression 311 and Type 2 diabetes mellitus without complication, without long-term current use of insulin E11.9 [facility] [address] [place], [place] [id number] 03/18/2025 Amyrenetta Guzman Type 2 diabetes mellitus without complication, without long-term current use of insulin E11.9 ; Mixed hyperlipidemia E78.2 and Acute pain of left hip M25.552 [facility] [address] [place], [place] [id number] 04/18/2024 R Rahul Raisa [facility] [address] [place], [place] [id number] 04/18/2024 R Rahul Raisa [facility] [address] [place], [place] [id number] 06/28/2024 Liliana Dooley [facility] [address] [place], [place] [id number] 07/22/2024 R Rahul [facility] [address] [place] [id number] 09/26/2024 Liliana Dooley [facility] [address] [place] [id number] 03/13/2025 Dave Heardeet Assessments Encounter Date Diagnosis (ICD Code) Assessment Notes Treatment Notes Treatment Clinical Notes Section Notes 06/27/2024 Mixed hyperlipidemia (ICD-10 - E78.2) 06/27/2024 Type 2 diabetes mellitus without complication, without long-term current use of insulin (ICD-10 - E11.9) 09/25/2024 Mixed hyperlipidemia (ICD-10 - E78.2) 09/25/2024 Type 2 diabetes mellitus without complication, without long-term current use of insulin (ICD-10 - E11.9) 10/18/2024 Influenza A (ICD-10 - J10.1) 10/28/2024 Depression (ICD-10 - 311) will try switching meds for her depression 10/28/2024 Type 2 diabetes mellitus (ICD-10 - E11.9) possible low BS; will stop Farxiga; will start to check FSBS several times weekly and also when she is shaking or feeling bad and to document 11/11/2024 Depression (ICD-10 - 311) doing well with this med 11/11/2024 Hypoglycemia (ICD-10 - E16.2) 03/18/2025 Mixed hyperlipidemia (ICD-10 - E78.2) 03/18/2025 Type 2 diabetes mellitus without complication, without long-term current use of insulin (ICD-10 - E11.9) 03/18/2025 Acute pain of left hip (ICD-10 - M25.552) 11/11/2024 Type 2 diabetes mellitus without complication, without long-term current use of insulin (ICD-10 - E11.9) doing well without SGLT2; will continue to monitor BS; repeat A1C at next visit; doing well with Mounjaro; will continue with same dosage 09/25/2024 Vitamin D deficiency (ICD-10 - E55.9) Will double the dose of Vit D and recheck in 3 months. 06/27/2024 Vitamin D deficiency (ICD-10 - E55.9) Will double the dose of Vit D and recheck in 3 months. 06/27/2024 Other insomnia (ICD-10 - G47.09) 09/25/2024 Other insomnia (ICD-10 - G47.09) 09/25/2024 Bilateral impacted cerumen (ICD-10 - H61.23) Ears irrigated and canals clear 06/27/2024 Sebaceous cyst (ICD-10 - L72.3) She will call dermatology and make an appt. 06/27/2024 Neoplasm of uncertain behavior of skin of ear (ICD-10 - D48.5) She will call dermatology and make an appt. 06/27/2024 Encounter for immunization (ICD-10 - Z23) Plan Of Treatment Pending Test Test Name Order Date Urinalysis - Inhouse 03/18/2025 X ray : Hip, left 03/18/2025 CBC Venipuncture (in house) 03/18/2025 Glycohemoglobin A1c (in house) P-Comprehensive Metabolic Panel (CMP) P-Lipid Panel 03/18/2025 Insurance Providers Payer Name Payer Address Payer Phone Subscriber Number Group Number Insured Name Patient Relationship to Insured Coverage Start Date Coverage End Date [employer] [address] [place] [address] [id number] OPAL BOCANEGRA Self - patient is the insured Medications Administered Medication Instructions Date of Administration Dosage Notes B-12 06/15/2021 1 mL Medical (General) History Medical History History ICD Code Prediabetes Surgical History Surgery Date(Month/Year) Tissue removed from under right arm 1994 Total Hysterectomy 2015 RT Ear Polyp Removal 2007 Heart Ablation-Dr Scales 2016
--- OUTSIDE RECORDS SUMMARY | 2025-03-18 11:14 | XMS_ITS | Encounter Summary ---
Author Organization Healthcare Address [address] [place] [address] Care Team Providers Care Online Publisher Name Role Phone Evangelista Palacio MD Primary Care Provider [phone] Dario Kline MD Primary Care Provider [phone] Mika Reynolds Unavailable Unavailable Radha Camejo RN Unavailable [phone] Cindy Oliver Unavailable [phone] Francisco Akers MD Unavailable [phone] Encounter Details Date Type Department Care Team (Late st Contact Info) Description 01/14/2022 [facility] [address] [place] [address] Mika Reynolds Liver mass (Primary Dx) Social History Tobacco Use Types Packs/Day Years [...] Description 02/11/2026 11:00 AM EDT Appointment [facility] [place] [id number] documented as of this encounter Visit Diagnoses Diagnosis Liver mass- Primary Unspecified disorder of liver documented in this encounter Care Teams Online Publisher Relationship Specialty Start Date End Date Evangelista Palacio MD [address] [place] [address] PCP - General 01/01/21 01/20/22 Dario Kline MD [address] [place] [address] PCP - General Family Medicine 01/21/22 Mika [place] Referring Physician Gastroenterology 01/21/22 Radha Camejo, RN [facility] [address] [place] [address] Registered Nurse Transplant Surgery 01/21/22 [place] [address] Registered Nurse Transplant Surgery 01/21/22 Francisco Akers MD [address] [facility] [address] [place] [id number] Surgeon Transplant Surgery 01/26/22 documented as of this encounter
--- OUTSIDE RECORDS SUMMARY | 2025-03-18 11:14 | XMS_ITS | Encounter Summary ---
Author Organization Healthcare Address [address] [place] [address] Care Team Providers Care Cash Applications Specialist Name Role Phone Evangelista Palacio MD Primary Care Provider [phone] Dario Kline MD Primary Care Provider [phone] Mika Reynolds W Unavailable Unavailable Radha Camejo RN Unavailable [phone] Cindy Oliver Unavailable [phone] Francisco Akers MD Unavailable [phone] Encounter Details Date Type Department Care Team (Late st Contact Info) Description 11/09/2021 Orders Only External Location [address] [place] [id number] Provider, External Social History Tobacco Use Types [...] 11:00 AM EDT Appointment [facility] [address] [place] [id number] documented as of this encounter Procedures Procedure Name Priority Date/Time Associated Diagnosis Comments US ABDOMEN OUTSIDE IMAGES 11/09/2021 10:54 AM EDT documented in this encounter Results * US ABDOMEN OUTSIDE IMAGES (11/09/2021 10:54 AM EDT) Anatomical Region Laterality Modality Ultrasound 11/09/2021 10:5 4 AM EDT us External Provider IMG US PROCEDURES Final Result documented in this encounter Visit Diagnoses Not on filedocumented in this encounter Care Teams Cash Applications Specialist Relationship Specialty Start Date End Date Evangelista Palacio MD [address] [place], [place] [id number] PCP - General 01/01/21 01/20/22 Dario Kline MD [address] [address] PCP - General Family Medicine 01/21/22 Mika Reynolds Referring Physician Gastroenterology 01/21/22 Radha Camejo, RN [facility] [address] [place] [address] Registered Nurse Transplant Surgery 01/21/22 [place] [address] Registered Nurse Transplant Surgery 01/21/22 Francisco Akers MD [address] [place] [address] Surgeon Transplant Surgery 01/26/22 documented as of this encounter
--- OUTSIDE RECORDS SUMMARY | 2025-03-18 11:15 | XMS_ITS | Clinical Summary ---
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 5 Active rosuvastatin (Crestor) 5 MG tablet TAKE 1 TABLET BY MOUTH ONCE DAILY for 30 Active tirzepatide (Mounjaro) 7.5 MG/0.5ML solution auto-injector solution pen-injector INJECT 1 PEN SUBCUTANEOUSLY ONCE A WEEK for 28 Active Active Problems No known active problems Encounters Date Type Department Care Team Description 02/25/2025 Telephone [facility] [place] [address] [place] [address] Radha Camejo RN Follow-up 01/15/2025 1:20 PM EDT Office Visit [facility] [place] [address] [place] [address] Francisco Akers MD 01/14/2025 12:57 PM EDT - 01/14/2025 11:59 PM EDT Hospital [place] [address] Liver mass Discharge Disposition: Home or Self Care 01/14/2025 Travel 01/13/2025 Travel from Last 3 Months Family History Medical History Relation Name Comments Cirrhosis Father Other cancer Mother Suicide Mother Heart failure Other 1 Other cancer Other 2 Other cancer Other 3 Suicide Attempts Other 4 Relation Name Status Comments Father Mother Other 1 Other 2 Other 3 Other 4 Social History Tobacco Use Types Packs/Day Years [...] Orientation Straight 01/26/2022 5: 41 PM EDT Last Filed Vital Signs Vital Sign Reading Time Taken Comments Blood Pressure 122/85 08/23/2023 10:16 AM EST Pulse 75 08/23/2023 10:16 AM EST Temperature 36.6 C (97.8 F) 08/23/2023 10:16 AM EST Respiratory Rate 16 08/23/2023 10:16 AM EST Oxygen Saturation 98% 08/23/2023 10:16 AM EST Inhaled Oxygen Concentration - - Weight 88.5 kg (195 lb) 01/15/2025 1:18 PM EDT Height 175.3 cm (5' 9 ) 01/15/2025 1:18 PM EDT Body Mass Index 28.8 01/15/2025 1:18 PM EDT Plan of Treatment Upcoming Encounters Date Type Department Care Team (Late st Contact Info) Description 02/11/2026 11:00 AM EDT Appointment [facility] [place] [address] Health Maintenance Due Date Last Done Comments [facility]-HIV Screening 1965 [facility]-Hepatitis C Screening 1965 [facility]-/Child/Adol SDOH Screenings 1965 [facility]- SDOH Screenings 12/10/1985 [facility]-Adult SDOH Screenings 12/10/1985 [facility]-Hepatitis A Vaccines (1 of 2 - Risk 2-dose series) 12/10/1986 [facility]-Hepatitis B Vaccines (1 of 3 - 19+ 3-dose series) 12/10/1986 CT Colonography 12/10/2012 Colonoscopy 12/10/2012 FIT-DNA 12/10/2012 FIT 12/10/2012 FOBT 12/10/2012 Sigmoidoscopy 12/10/2012 [facility]-Colorectal Cancer Screening 12/10/2012 [facility]-Breast Cancer Screening 12/10/2017 06/24/2014 [facility]-Pneumococcal Vaccine: 50 + Years (2 of 2 - PCV) 05/13/2020 05/13/2019 [facility]-Zoster Vaccines (2 of 2) 01/08/2022 11/13/2021 [id number] Vaccine (4 - season) 2024 10/08/2021, 12/31/2020, 12/03/2020 [facility]-Influenza Vaccine (#1) 04/21/202506/18, 05/02/2020, 05/13/2019 [facility]-Depression Screening 01/15/2026 01/15/2025 [facility]-DTaP,Tdap,and Td Vaccine s (2 - Td or Tdap) 06/18/2032 06/18/2022, 10/24/1996 [facility]-Obesity Intervention Completed 08/23/2023 HPV Vaccines Aged Out No longer eligi ble based on patient's age to complete this topic [facility]-HIB Vaccines Aged Out No longer e ligible based on patient's age to complete this topic [facility]-IPV Vaccines Aged Out No longer e ligible based on patient's age to complete this topic [facility]-Rotavirus Vaccines Aged Out No lo nger eligible based on patient's age to complete this topic Procedures Procedure Name Priority Date/Time Associated Diagnosis Comments MR ABDOMEN W AND WO IV CONTRAST Routine 01/14/2025 1:43 PM EDT Liver mass from Last 3 Months Results * MR Abdomen w and wo IV Contrast (01/14/2025 1:43 PM EDT) Anatomical Region Laterality Modality Abdomen Magnetic Resonan ce Impressions 01/14/2025 10:55 PM EDT Decrease conspicuity of the two [facility] lesions when compared to MRI from August 2023. CRITICAL RESULT: No. COMMUNICATION: Per this written report. Drafted by Megan East MD on 01/14/2025 2:21 PM Final report signed by Megan East MD on 01/14/2025 10:55 PM Narrative 01/14/2025 10:55 PM EDT CLINICAL INDICATION: [facility], routine surveillance TECHNIQUE: MR imaging of the abdomen was performed with and without intravenous contrast material using the following sequences: coronal single shot T2 weighted fast spin echo, axial T2 weighted sequences with and without fat saturation, axial dual phase gradient echo, pre and dynamic postcontrast 3-D T1 weighted gradient echo with fat saturation (axial and coronal), and axial diffusion. 8.8 mL of Eovist was administered. COMPARISON: MR dated 08/23/2023 FINDINGS: Liver: Similar distribution of diffuse hepatic steatosis with relative sparing of the posterolateral inferior right hemiliver that shows accentuated arterial phase hyperenhancement. Both the previously described focal nodular hyperplasia are much more indistinct and isointense appearing on the current study. The largest medial segment VII lesion is perceivable on the diffusion-weighted images and is perhaps grossly similarly sized, however the subcentimeter central hepatic segment V lesion described previously is not well left initiated on the current study. There are no definite new hepatic focal lesions. Few subcentimeter hepatic cysts are unchanged. Gallbladder: Cholelithiasis without evidence of acute cholecystitis. Bile Duct: Nondilated biliary ductal dilatation. Spleen: Unremarkable. Adrenal Glands: Unremarkable. Pancreas: Unremarkable. Kidneys: Unremarkable aside from simple cortical cysts, largest at the right lower pole measuring 8 cm diameter. Fluid Survey: No upper abdominal ascites. Vasculature: Patent major arterial and venous vasculature. Lymph Nodes: No suspicious adenopathy within the included upper abdomen. Musculoskeletal: No focal aggressive lesions. Procedure Note Megan East MD - 01/14/2025 CLINICAL INDICATION: [facility]NH, routine surveillance TECHNIQUE: MR imaging of the abdomen was performed with and without intravenouscontrast material using the following sequences: coronal single shot [id number] fast spin echo, axial T2 weighted sequences with and without fatsaturation, axial dual phase gradient echo, pre and dynamic postcontrast3-D T1 weighted gradient echo with fat saturation (axial and coronal), andaxial diffusion. 8.8 mL of Eovist was administered. COMPARISON: MR dated 08/23/2023 FINDINGS: Liver: Similar distribution of diffuse hepatic steatosis with relativesparing of the posterolateral inferior right hemiliver that showsaccentuated arterial phase hyperenhancement. Both the previously describedfocal nodular hyperplasia are much more indistinct and isointenseappearing on the current study. The largest medial segment VII lesion isperceivable on the diffusion-weighted images and is perhaps grosslysimilarly sized, however the subcentimeter central hepatic segment Vlesion described previously is not well left initiated on the currentstudy. There are no definite new hepatic focal lesions. Few subcentimeterhepatic cysts are unchanged. Gallbladder: Cholelithiasis without evidence of acute cholecystitis. Bile Duct: Nondilated biliary ductal dilatation. Spleen: Unremarkable. Adrenal Glands: Unremarkable. Pancreas: Unremarkable. Kidneys: Unremarkable aside from simple cortical cysts, largest at theright lower pole measuring 8 cm diameter. Fluid Survey: No upper abdominal ascites. Vasculature: Patent major arterial and venous vasculature. Lymph Nodes: No suspicious adenopathy within the included upper abdomen. Musculoskeletal: No focal aggressive lesions. IMPRESSION: Decrease conspicuity of the two [facility] lesions when compared to MRI fromAugust 2023. CRITICAL RESULT: No. COMMUNICATION: Per this written report. 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
--- NOTE | 2025-03-18 11:18 | XR_ITS ---
FINAL REPORT CLINICAL HISTORY: LT HIP PAIN COMPARISON: None FINDINGS: An AP view of the pelvis and 2 views of the left hip were obtained. There is no acute fracture or dislocation. Joint space is preserved. Remaining osseous pelvis is without acute abnormality. Soft tissues are unremarkable. IMPRESSION: No acute osseous abnormality of the left hip. Reviewed, Interpreted and Dictated by Ava Rodriguez MD Transcribed by Haylee Guillaume Authenticated and [facility]
== END 2025-03-18 23:59 | disposition home or self-care (01) ==
LOC: RAD 11:12
PROVIDERS: PCP Nurse Practitioner Family; Visit Provider Nurse Practitioner Family
DX: M25.552 Pain in left hip (principal)
CPT/HCPCS: 73502